=== PATIENT | male | born 1975 | race Caucasian/White ===

== ENCOUNTER 2017-10-27 05:43 | Emergency (ER) | payer BC, SELFPAY ==
[2017-10-27 06:16] LABS: Absolute Lymphocytes (CBC) 2.8 K/uL (0.7-4.9); Absolute Monocytes 0.9 K/uL (0.1-1.3); Absolute Neutrophil 6.8 K/uL (1.8-8.0); Basophils % 0.9 % (0-1.3); Eosinophils % 2.4 % (0-4.4); Hematocrit 44.7 % (39.6-49.0); Lymphocytes % 25.9 % (15.3-44.8); MCH 31.5 pg (27.0-35.0); MCV 92.4 fL (80-100); MPV 8.7 fL (7.6-11.3); Monocytes % 8.4 % (3.3-12.3); RBC Red Blood Cell Count 4.83 M/uL (4.33-5.43)
[2017-10-27 06:25] LABS: Bicarbonate 26 mEq/L (21-31); Glucose Level 300 mg/dL (65-120); Potassium 3.9 mEq/L (3.6-5.0); Sodium Level 134 mEq/L (135-145)
[2017-10-27 06:26] LABS: BUN Blood Urea Nitrogen 19 mg/dL (6-20); Glomerular Filtration Rate > 90 mL/min (=/>90)
[2017-10-27] MEDS ORDERED: IPRATROPIUM BROM 0.5MG/2.5ML ONE (06:27)
[2017-10-27] MEDS ORDERED: ALBUTEROL 2.5 MG/3 ML NEB SOL ONE ×2 (06:27→07:42)
[2017-10-27] MEDS ORDERED: predniSONE 20 MG TAB ONE (07:42)
--- NOTE | 2017-10-27 08:28 | EDPHYS ---
Physician Documentation [facility] Name: Juno Corcoran Jr Age: 42 yrs Sex: Male : 1975 Arrival Date: 10/27/2017 Time: 05:45 Bed 5 Private MD: ED Physician Brian Barrios HPI: 10/27 06:02 This 42 yrs old Male presents to ER via Ambulatory with complaints of kb Shortness Of Breath. 06:02 The patient has shortness of breath at rest. Onset: The symptoms/episode began/occurred kb this morning, at 02:00. Duration: The symptoms are continuous. The patient's shortness of breath is aggravated by supine position, is alleviated by sitting up. Associated signs and symptoms: Pertinent positives: non-productive cough, Pertinent negatives: chest pain, productive cough, diaphoresis, dizziness, fever, hemoptysis, loss of consciousness, nausea, numbness in extremities, visual changes, vomiting. Severity of symptoms: At their worst the symptoms were moderate in the emergency department the symptoms are unchanged. The patient has not experienced similar symptoms in the past. The patient has not recently seen a physician. Pt states he has felt run down with intermittent fever and shortness of breath for 3 weeks. Started having shortness of breath at 0200 today. Denies respiratory history, smokes a pack per day. Historical: - Allergies: 06:03 PENICILLINS; bb - Home Meds: 06:03 losartan oral oral [Active]; Metformin Oral [Active]; diclofenac oral oral [Active]; bb aspirin 81 mg Oral chew 1 tab once daily [Active]; Allergy Medication oral oral [Active]; B3 [Active]; - PMHx: 06:03 Diabetes - NIDDM; Hypertension; bb - PSHx: 06:04 Knee surgery; thumb; bb - Immunization history:: Adult Immunizations up to date, Flu vaccine is not up to date. - Social history:: Smoking status: Patient uses tobacco products, smokes one pack cigarettes per day. Patient/guardian denies using alcohol, street drugs. ROS: 06:01 ENT: Negative for injury, pain, and discharge, Neck: Negative for injury, pain, and kb swelling, Cardiovascular: Negative for chest pain, palpitations, and edema, Abdomen/GI: Negative for abdominal pain, nausea, vomiting, diarrhea, and constipation, Back: Negative for injury and pain, : Negative for injury, bleeding, discharge, and swelling, MS/Extremity: Negative for injury and deformity, Skin: Negative for injury, rash, and discoloration, Neuro: Negative for headache, weakness, numbness, tingling, and seizure. 06:01 Constitutional: Positive for fever, Negative for body aches, chills, fatigue, malaise, poor PO intake, weight loss. 06:01 Respiratory: Positive for cough, with no reported sputum, shortness of breath, Negative for dyspnea on exertion, hemoptysis, orthopnea, pleurisy, sputum production. Exam: 06:01 Constitutional: This is a well developed, well nourished patient who is awake, alert, kb and in no acute distress. Head/Face: Normocephalic, atraumatic. ENT: Nares patent. No nasal discharge, no septal abnormalities noted. Tympanic membranes are normal and external auditory canals are clear. Oropharynx with no redness, swelling, or masses, exudates, or evidence of obstruction, uvula midline. Mucous membranes moist. Neck: Trachea midline, no thyromegaly or masses palpated, and no cervical lymphadenopathy. Supple, full range of motion without nuchal rigidity, or vertebral point tenderness. No Meningismus. Chest/axilla: Normal chest wall appearance and motion. Nontender with no deformity. No lesions are appreciated. Cardiovascular: Regular rate and rhythm with a normal S1 and S2. No gallops, murmurs, or rubs. Normal PMI, no JVD. No pulse deficits. Abdomen/GI: Soft, non-tender, with normal bowel sounds. No distension or tympany. No guarding or rebound. No evidence of tenderness throughout. Skin: Warm, dry with normal turgor. Normal color with no rashes, no lesions, and no evidence of cellulitis. MS/ Extremity: Pulses equal, no cyanosis. Neurovascular intact. Full, normal range of motion. Neuro: Awake and alert, GCS 15, oriented to person, place, time, and situation. Cranial nerves II-XII grossly intact. Motor strength 5/5 in all extremities. Sensory grossly intact. Cerebellar exam normal. Normal gait. 06:01 Respiratory: the patient does not display signs of respiratory distress, Respirations: normal, Breath sounds: wheezing: expiratory that is mild, is heard in the bilateral lung bases. 07:02 Respiratory: the patient does not display signs of respiratory distress, Respirations: kb normal, Breath sounds: wheezing: expiratory that is mild, is heard in the bilateral lower lobes, has not changed. Vital Signs: 06:04 BP 131 / 78; Pulse 81; Resp 22 S; Temp 97.6(O); Pulse Ox 97% on R/A; Weight 122.47 kg bb (R); Height 6 ft. 2 in. (187.96 cm) (R); Pain 0/10; 07:15 BP 132 / 77; Pulse 81; Resp 19 S; Pulse Ox 98% on R/A; Pain 0/10; sg 06:04 Body Mass Index 34.67 (122.47 kg, 187.96 cm) bb MDM: 05:57 Patient medically screened. kb 06:00 Data reviewed: vital signs, nurses notes. Data interpreted: Pulse oximetry: on room air kb is 97 %. Interpretation: normal. 07:03 ED course: Pt resting comfortably on stretcher, watching something on his phone. No kb resp distress noted. States neb treatment didn't help the shortness of breath, but he feels like he is wheezing less. . 07:31 Counseling: I had a detailed discussion with the patient and/or guardian regarding: the kb historical points, exam findings, and any diagnostic results supporting the discharge/admit diagnosis, lab results, radiology results, the need for outpatient follow up, a family practitioner, to return to the emergency department if symptoms worsen or persist or if there are any questions or concerns that arise at home. 10/27 06:00 Order name: CBC with Diff 10/27 06:00 Order name: Basic Metabolic Panel 10/27 06:00 Order name: Chest Pa And Lat (2 Views) XRAY 10/27 06:24 Order name: CBC with Automated Diff; Complete Time: 06:25 EDMS 10/27 06:25 Order name: Basic Metabolic Panel; Complete Time: 06:29 EDMS 10/27 06:00 Order name: IV Start; Complete Time: 06:10 kb Administered Medications: 06:10 Drug: DuoNeb (3:1) (2.5 mg - 0.5 mg) 3 ml Route: Nebulizer; tl2 07:20 Follow up: Response: No adverse reaction sg 07:28 Drug: Albuterol 2.5 mg Route: Inhalation; sg 07:29 Drug: predniSONE 60 mg Route: PO; sg 07:49 Follow up: Response: No adverse reaction sg 07:29 Drug: Albuterol 2.5 mg Route: Inhalation; sg 07:51 Follow up: Response: No adverse reaction sg 07:29 Drug: Albuterol 2.5 mg Route: Inhalation; Disposition: 10/27/17 08:27 Discharged to Home. Impression: Bronchitis, not specified as acute or chronic. - Condition is Stable. - Discharge Instructions: Acute Bronchitis, [id number]. - Prescriptions for Prednisone 20 mg Oral Tablet - take 1 tablet by ORAL route once daily for 5 days; 5 tablet. Albuterol Sulfate 90 mcg/actuation - inhale 1-2 puff by INHALATION route every 4-6 hours; 1 Inhaler. - Medication Reconciliation Form, Thank You Letter, Antibiotic Education, Prescription Opioid Use, Work release form form. - Follow up: Emergency Department; When: As needed; Reason: Worsening of condition. Follow up: Private Physician; When: 2 - 3 days; Reason: Recheck today's complaints, Continuance of care, Re-evaluation by your physician. Signatures: Dispatcher [employer] Lynn Han, FUNERAL LOCATION MANAGER-C FUNERAL LOCATION MANAGER-Rex Powell RN Dawna Alicea RN RN Manuela Walker RN RN tl2
--- NOTE | 2017-10-27 08:28 | ER ---
Nurse's Notes [facility] Name: Juno Corcoran Jr Age: 42 yrs Sex: Male : 1975 Arrival Date: 10/27/2017 Time: 05:45 Bed 5 Private MD: Diagnosis: Bronchitis, not specified as acute or chronic Presentation: 10/27 05:59 Presenting complaint: Patient states: he is having shortness of breath since approx bb 0230 this morning but has been having cough and cold symptoms for several weeks. Transition of care: patient was not received from another setting of care. Onset of symptoms was October 27, 2017 at 02:30. Care prior to arrival: None. 05:59 Method Of Arrival: Ambulatory bb 05:59 Acuity: KEVIN 3 bb Triage Assessment: 06:12 Respiratory: Onset: The symptoms/episode began/occurred gradually, the patient has mild tl2 shortness of breath. Historical: - Allergies: 06:03 PENICILLINS; bb - Home Meds: 06:03 losartan oral oral [Active]; Metformin Oral [Active]; diclofenac oral oral [Active]; bb aspirin 81 mg Oral chew 1 tab once daily [Active]; Allergy Medication oral oral [Active]; B3 [Active]; - PMHx: 06:03 Diabetes - NIDDM; Hypertension; bb - PSHx: 06:04 Knee surgery; thumb; bb - Immunization history:: Adult Immunizations up to date, Flu vaccine is not up to date. - Social history:: Smoking status: Patient uses tobacco products, smokes one pack cigarettes per day. Patient/guardian denies using alcohol, street drugs. Screenin:12 Abuse screen: Denies threats or abuse. Nutritional screening: No deficits noted. tl2 Tuberculosis screening: No symptoms or risk factors identified. Fall Risk None identified. Assessment: 06:10 General: Appears in no apparent distress. comfortable, Behavior is calm, cooperative, tl2 appropriate for age. Pain: Denies pain. Neuro: Level of Consciousness is awake, alert, obeys commands, Oriented to person, place, time, situation. Cardiovascular: Denies chest pain. Respiratory: Reports shortness of breath cough that is Airway is patent Respiratory effort is even, unlabored, Respiratory pattern is regular, symmetrical, Breath sounds with wheezes bilaterally. GI: No signs and/or symptoms were reported involving the gastrointestinal system. : No signs and/or symptoms were reported regarding the genitourinary system. Derm: Skin is pink, warm \T\ dry. 06:30 Reassessment: Patient appears in no apparent distress at this time. Patient and/or tl2 family updated on plan of care and expected duration. Pain level reassessed. Patient is alert, oriented x 3, equal unlabored respirations, skin warm/dry/pink. Pt returned from Xray. 07:20 Reassessment: Patient appears in no apparent distress at this time. Patient and/or sg family updated on plan of care and expected duration. Pain level reassessed. Patient is alert, oriented x 3, equal unlabored respirations, skin warm/dry/pink. awaiting xray results at this time. Vital Signs: 06:04 BP 131 / 78; Pulse 81; Resp 22 S; Temp 97.6(O); Pulse Ox 97% on R/A; Weight 122.47 kg bb (R); Height 6 ft. 2 in. (187.96 cm) (R); Pain 0/10; 07:15 BP 132 / 77; Pulse 81; Resp 19 S; Pulse Ox 98% on R/A; Pain 0/10; sg 06:04 Body Mass Index 34.67 (122.47 kg, 187.96 cm) ED Course: 05:45 Patient arrived in ED. am2 05:57 Lynn Emanuel FNP-C [facility]. kb 05:57 Brian Barrios MD is Attending Physician. kb 06:00 Triage completed. bb 06:04 Arm band placed on Patient placed in an exam room, on a stretcher, on pulse oximetry. bb Family accompanied patient. 06:09 Inserted saline lock: 22 gauge in right wrist, using aseptic technique. Blood collected.tl2 06:10 Basic Metabolic Panel Sent. tl2 06:10 CBC with Diff Sent. tl2 06:12 Patient has correct armband on for positive identification. Bed in low position. Call tl2 light in reach. Side rails up X 1. Adult w/ patient. 06:40 Patient moved to radiology via wheelchair. jb2 06:55 X-ray completed. Patient tolerated procedure well. Patient moved back from radiology. jb2 07:21 Rex Garcia, RN is Primary Nurse. sg Administered Medications: 06:10 Drug: DuoNeb (3:1) (2.5 mg - 0.5 mg) 3 ml Route: Nebulizer; tl2 07:20 Follow up: Response: No adverse reaction sg 07:28 Drug: Albuterol 2.5 mg Route: Inhalation; sg 07:29 Drug: predniSONE 60 mg Route: PO; sg 07:49 Follow up: Response: No adverse reaction sg 07:29 Drug: Albuterol 2.5 mg Route: Inhalation; sg 07:51 Follow up: Response: No adverse reaction sg 07:29 Drug: Albuterol 2.5 mg Route: Inhalation; Outcome: 08:27 Discharge ordered by . kb 09:10 Patient left the ED. sg Signatures: Lynn Emanuel, PAINT GRINDER-C PAINT GRINDER-Rex Powell RN RN sg Donn Sosa jb2 Dawna Roman RN RN bb Manuela Donovan RN RN tl2 Desi Madrid am2 Corrections: (The following items were deleted from the chart) 06:12 06:10 Respiratory: Reports shortness of breath cough that is Airway is patent tl2 Respiratory effort is even, unlabored, Respiratory pattern is regular, symmetrical, tl2
--- NOTE | 2017-10-27 09:11 | RAD REPORT ---
EXAM DESCRIPTION: RAD - Chest Pa And Lat (2 Views) - 10/27/2017 6:56 am CLINICAL HISTORY: Cough, congestion, dyspnea COMPARISON: Chest imaging and CT chest imaging August 2014 TECHNIQUE: PA and lateral views of the chest were obtained. FINDINGS: The lungs are clear of an acute infiltrate, mass or failure finding. Innumerable small declan cified granulomas are scattered throughout both lung del angel. This is a stable pattern back to at leas t 2014. Heart size is normal and central vasculature is within normal limits. No pleural effusion or pneumothorax seen. No acute bone finding. There is minimal left convex curvature of the upper tho racic spine. No aortic abnormality. IMPRESSION: No acute cardiopulmonary process. The above detailed findings are not significantly different from remote imaging.
[2017-10-27 09:17] VITALS: TEMP 97.6
[2017-10-27 09:18] VITALS: BP 132/77; O2SAT 98
== END 2017-10-27 09:10 | disposition home or self-care (01) ==
LOC: ER 05:43
DX: J40 Bronchitis, not specified as acute or chronic (principal); I10 Essential (primary) hypertension; E11.9 Type 2 diabetes mellitus without complications; F17.210 Nicotine dependence, cigarettes, uncomplicated; Z79.82 Long term (current) use of aspirin; Z88.0 Allergy status to penicillin
CPT/HCPCS: 36415; 71046; 80048; 85025; 94640; 99284; J7512

== ENCOUNTER 2017-11-09 17:48 | Emergency (ER) | payer SELFPAY ==
--- NOTE | 2017-11-09 18:32 | EDPHYS ---
Physician Documentation [facility] Name: Juno Corcoran Jr Age: 42 yrs Sex: Male : 1975 Arrival Date: 11/09/2017 Time: 17:50 Bed 15 Private MD: Baron Mai HPI: 11/09 18:25 This 42 yrs old Male presents to ER via Ambulatory with complaints of Groin ondina Pain. 18:25 The patient presents with an abscess of the groin and left femoral area. Description: ondina The affected area is moderate sized, confluent, erythematous, swollen. Onset: The symptoms/episode began/occurred 3 day(s) ago. Possible cause(s): unknown. Associated signs and symptoms: The patient has no apparent associated signs or symptoms. Severity of symptoms: At their worst the symptoms were. Historical: - Allergies: 17:53 PENICILLINS; hj - Home Meds: 17:53 aspirin 81 mg Oral chew 1 tab once daily [Active]; metformin 500 mg oral tab 1 tab 2 hj times per day [Active]; B3 [Active]; diclofenac Oral once daily [Active]; Allergy Medication Oral [Active]; losartan Oral [Active]; - PMHx: 17:53 Diabetes - NIDDM; Hypertension; hj - PSHx: 17:53 Knee surgery; thumb; hj - Immunization history:: Adult Immunizations not up to date. - Social history:: Smoking status: Patient uses tobacco products, smokes one pack cigarettes per day. - Family history:: not pertinent. ROS: 18:25 Constitutional: Negative for fever, chills, and weight loss, Eyes: Negative for injury, ondina pain, redness, and discharge, ENT: Negative for injury, pain, and discharge, Neck: Negative for injury, pain, and swelling, Cardiovascular: Negative for chest pain, palpitations, and edema, Respiratory: Negative for shortness of breath, cough, wheezing, and pleuritic chest pain, Abdomen/GI: Negative for abdominal pain, nausea, vomiting, diarrhea, and constipation, Back: Negative for injury and pain, : Negative for injury, bleeding, discharge, and swelling, Skin: Negative for injury, rash, and discoloration, Neuro: Negative for headache, weakness, numbness, tingling, and seizure, Psych: Negative for depression, anxiety, suicide ideation, homicidal ideation, and hallucinations, Allergy/Immunology: Negative for hives, rash, and allergies, Endocrine: Negative for neck swelling, polydipsia, polyuria, polyphagia, and marked weight changes. 18:25 MS/extremity: Positive for decreased range of motion, pain, swelling, tenderness, of the groin and left femoral area. Exam: 18:25 Constitutional: This is a well developed, well nourished patient who is awake, alert, ondina and in no acute distress. Head/Face: Normocephalic, atraumatic. Eyes: Pupils equal round and reactive to light, extra-ocular motions intact. Lids and lashes normal. Conjunctiva and sclera are non-icteric and not injected. Cornea within normal limits. Periorbital areas with no swelling, redness, or edema. ENT: Nares patent. No nasal discharge, no septal abnormalities noted. Tympanic membranes are normal and external auditory canals are clear. Oropharynx with no redness, swelling, or masses, exudates, or evidence of obstruction, uvula midline. Mucous membranes moist. Neck: Trachea midline, no thyromegaly or masses palpated, and no cervical lymphadenopathy. Supple, full range of motion without nuchal rigidity, or vertebral point tenderness. No Meningismus. Chest/axilla: Normal chest wall appearance and motion. Nontender with no deformity. No lesions are appreciated. Cardiovascular: Regular rate and rhythm with a normal S1 and S2. No gallops, murmurs, or rubs. Normal PMI, no JVD. No pulse deficits. Respiratory: Lungs have equal breath sounds bilaterally, clear to auscultation and percussion. No rales, rhonchi or wheezes noted. No increased work of breathing, no retractions or nasal flaring. Abdomen/GI: Soft, non-tender, with normal bowel sounds. No distension or tympany. No guarding or rebound. No evidence of tenderness throughout. Back: No spinal tenderness. No costovertebral tenderness. Full range of motion. Skin: Warm, dry with normal turgor. Normal color with no rashes, no lesions, and no evidence of cellulitis. MS/ Extremity: Pulses equal, no cyanosis. Neurovascular intact. Full, normal range of motion. Neuro: Awake and alert, GCS 15, oriented to person, place, time, and situation. Cranial nerves II-XII grossly intact. Motor strength 5/5 in all extremities. Sensory grossly intact. Cerebellar exam normal. Normal gait. Psych: Awake, alert, with orientation to person, place and time. Behavior, mood, and affect are within normal limits. 18:25 : Exam negative for 18:25 Skin: abscess, that is small, cellulitis, that is minimal, induration, that is moderate is noted. Vital Signs: 17:53 BP 131 / 92; Pulse 87; Resp 18; Temp 99.5(O); Pulse Ox 98% on R/A; Weight 122.47 kg; hj Height 6 ft. 5 in. (195.58 cm); Pain 10/10; 18:11 BP 130 / 88; Pulse 73; Resp 18; Pulse Ox 97% on R/A; wh 17:53 Body Mass Index 32.02 (122.47 kg, 195.58 cm) Procedures: 19:22 I \T\ D: Incision and drainage was performed for an abscess of the left Prepped with [facility] Betadine, Anesthetized with 10 ml's 1% Lidocaine w/ Epi. Incised with #11 blade. Drained moderate amount serosanguinous fluid. Packed with iodoform gauze, Dressing: sterile 4x4 gauze, the patient tolerated the procedure well. MDM: 18:21 Patient medically screened. [facility] 18:25 Data reviewed: vital signs, nurses notes, lab test result(s). [facility] 11/09 18:24 Order name: Urine Dipstick--Ancillary (enter results) 11/09 18:24 Order name: Urine Dipstick-Ancillary EDMS 11/09 18:25 Order name: Wound Culture [facility] 11/09 18:25 Order name: Dressing - Wound; Complete Time: 18:48 [facility] 11/09 18:25 Order name: Gloves, Sterile; Complete Time: 18:48 [facility] 11/09 18:25 Order name: Setup Suture Tray; Complete Time: 18:48 [facility] 11/09 18:31 Order name: Blood Glucose Level; Complete Time: 18:49 [facility] Administered Medications: 18:47 Drug: Zofran 4 mg Route: PO; 19:19 Follow up: Response: No adverse reaction 18:48 Drug: Bactrim (160 mg-800 mg (DS) 1 tablet Route: PO; 19:19 Follow up: Response: No adverse reaction 18:49 Drug: Doxycycline 200 mg Route: PO; 19:18 Follow up: Response: No adverse reaction 19:18 Drug: Lidocaine-Epinephrine -1%: (1:100,000) 10 ml {Note: Left Groin Area.} Volume: 20 wh ml; Route: Infiltration; 19:19 Follow up: Response: No adverse reaction Point of Care Testing: Blood Glucose: 19:21 Blood Glucose: 208 mg/dL; Ranges: Critical Glucose Levels:Adult <50 mg/dl or >400 mg/dl <40 mg/dl or >180 mg/dl Disposition: 11/09/17 18:31 Discharged to Home. Impression: Cutaneous abscess of other sites - left groin, Type 2 diabetes mellitus. - Condition is Stable. - Discharge Instructions: Abscess, Type 2 Diabetes Mellitus, Adult, Incision and Drainage, Abscess, [id number], Diabetes Mellitus and Food, Type 2 Diabetes Mellitus, Adult, [id number]. - Prescriptions for Tylenol- Codeine #3 300-30 mg Oral Tablet - take 2 tablets by ORAL route every 6 hours As needed; 24 tablet. Doxycycline Hyclate 100 mg Oral Tablet - take 1 tablet by ORAL route every 12 hours; 20 tablet. Bactrim DS 800- 160 mg Oral Tablet - take 1 tablet by ORAL route every 12 hours for 10 days; 20 tablet. - Medication Reconciliation Form, Thank You Letter, Antibiotic Education, Prescription Opioid Use form. - Follow up: Private Physician; When: 2 - 3 days; Reason: Recheck today's complaints, Continuance of care, Re-evaluation by your physician. Follow up: Meng Romero; When: 2 - 3 days; Reason: Recheck today's complaints, Re-evaluation by your physician. - Problem is new. - Symptoms have improved. Signatures: Dispatcher [employer] Baron Suarez MD MD cha Joaquin, Henry, Josiah Fink RN
--- NOTE | 2017-11-09 18:32 | ER ---
Nurse's Notes [facility] Name: Juno Corcoran Jr Age: 42 yrs Sex: Male : 1975 Arrival Date: 11/09/2017 Time: 17:50 Bed 15 Private MD: Diagnosis: Cutaneous abscess of other sites-left groin;Type 2 diabetes mellitus Presentation: 11/09 17:51 Presenting complaint: Patient states: i noticed a knot on my L groin and been draining hj it; reports nausea, denies fever and chills;. Transition of care: patient was not received from another setting of care. Onset of symptoms was November 09, 2017. Care prior to arrival: None. 17:51 Method Of Arrival: Ambulatory hj 17:51 Acuity: KEVIN 4 hj Triage Assessment: 17:53 General: Appears in no apparent distress. uncomfortable, Behavior is calm, cooperative, hj appropriate for age. Pain: Complains of pain in pelvis. Historical: - Allergies: 17:53 PENICILLINS; hj - Home Meds: 17:53 aspirin 81 mg Oral chew 1 tab once daily [Active]; metformin 500 mg oral tab 1 tab 2 hj times per day [Active]; B3 [Active]; diclofenac Oral once daily [Active]; Allergy Medication Oral [Active]; losartan Oral [Active]; - PMHx: 17:53 Diabetes - NIDDM; Hypertension; hj - PSHx: 17:53 Knee surgery; thumb; hj - Immunization history:: Adult Immunizations not up to date. - Social history:: Smoking status: Patient uses tobacco products, smokes one pack cigarettes per day. - Family history:: not pertinent. Screenin:10 Abuse screen: Denies threats or abuse. Denies injuries from another. Nutritional wh screening: No deficits noted. Tuberculosis screening: No symptoms or risk factors identified. Fall Risk None identified. Assessment: 18:08 General: Appears in no apparent distress. comfortable, Behavior is calm, cooperative, wh appropriate for age. Pain: Complains of pain in left groin area Pain does not radiate. Pain currently is 10 out of 10 on a pain scale. Pain began 1 day ago. Neuro: Level of Consciousness is awake, alert, obeys commands, Oriented to person, place, time, situation. Cardiovascular: Denies chest pain, Capillary refill < 3 seconds. Respiratory: Airway is patent Respiratory effort is even, unlabored, Respiratory pattern is regular, symmetrical. GI: Abdomen is flat, non-distended. : No signs and/or symptoms were reported regarding the genitourinary system. EENT: No signs and/or symptoms were reported regarding the EENT system. Derm: Skin is intact, is healthy with good turgor, Skin is pink, warm \T\ dry. normal, reddened area around groin. Musculoskeletal: Range of motion: intact in all extremities. 19:20 Reassessment: Patient appears in no apparent distress at this time. Patient and/or wh family updated on plan of care and expected duration. Pain level reassessed. Patient is alert, oriented x 3, equal unlabored respirations, skin warm/dry/pink. Vital Signs: 17:53 BP 131 / 92; Pulse 87; Resp 18; Temp 99.5(O); Pulse Ox 98% on R/A; Weight 122.47 kg; Height 6 ft. 5 in. (195.58 cm); Pain 10/10; 18:11 BP 130 / 88; Pulse 73; Resp 18; Pulse Ox 97% on R/A; wh 17:53 Body Mass Index 32.02 (122.47 kg, 195.58 cm) ED Course: 17:50 Patient arrived in ED. rg4 17:52 Triage completed. 17:53 Arm band placed on right wrist. 18:07 Josiah Meehan is Primary Nurse. 18:11 Patient has correct armband on for positive identification. Bed in low position. Call light in reach. Side rails up X 1. Pulse ox on. NIBP on. 18:20 Barno Barahona MD is Attending Physician. [facility] 18:31 Meng Romero MD is Referral Physician. [facility] 19:20 Assist provider with I \T\ D: of an abscess on left groin area Set up I\T\D tray. Performed wh by Baron Barahona MD Culture sent to lab. Wound packed. iodoform gauze, Dressing with Neosporin and Patient tolerated well. Patient did not have IV access during this emergency room visit. Administered Medications: 18:47 Drug: Zofran 4 mg Route: PO; 19:19 Follow up: Response: No adverse reaction 18:48 Drug: Bactrim (160 mg-800 mg (DS) 1 tablet Route: PO; 19:19 Follow up: Response: No adverse reaction 18:49 Drug: Doxycycline 200 mg Route: PO; 19:18 Follow up: Response: No adverse reaction 19:18 Drug: Lidocaine-Epinephrine -1%: (1:100,000) 10 ml {Note: Left Groin Area.} Volume: 20 wh ml; Route: Infiltration; 19:19 Follow up: Response: No adverse reaction Point of Care Testing: Blood Glucose: 19:21 Blood Glucose: 208 mg/dL; Ranges: Outcome: 18:31 Discharge ordered by MD. nj 19:27 Discharged to home 19:27 Discharged to home ambulatory. 19:27 Condition: good 19:27 Discharge instructions given to patient, family, Instructed on discharge instructions, follow up and referral plans. no drinking with medication, no driving heavy equipment, medication usage, wound care, POC Abscess Demonstrated understanding of instructions, follow-up care, wound care, POC Prescriptions given X 3. 19:29 Patient left the ED. Addendum: 11/14/2017 18:58 Addendum: Culture Results: Positive wound culture. Bacteria is resistant to, has i w intermediate sensitivity, or is not tested against prescribed antibiotics. Report given to FLORINA for further evaluation and then to outbound telemarketing representative for follow up with patient. Phone call Attempt #1 pt did not answer, unable to leave voicemail. Signatures: Baron Barahona MD MD cha Williams, Irene, RN NORRIS Jonathan Boles RN RN hj Garcia, Rubi 4 Josiah Meehan Corrections: (The following items were deleted from the chart) 11/09 17:56 17:53 Pulse 87bpm; Resp 18bpm; Pulse Ox 98% RA; Temp 99.5F Oral; 122.47 kg; Height 6 hj ft. 5 in.; BMI: 32.0; Pain 10/10; hj
[2017-11-09] MEDS ORDERED: ONDANSETRON 4 MG (ODT) TAB ONE (19:02)
[2017-11-09] MEDS ORDERED: SMZ./TMP. 800/160 MG TABLET ONE (19:02)
[2017-11-09] MEDS ORDERED: DOXYCYCLINE 100 MG CAP PO ONE (19:03)
[2017-11-09] MEDS ORDERED: LIDOCAINE 1% W/EPI 1:100,000 MDV 50 ML VIAL ONE (19:03)
[2017-11-09 19:33] VITALS: TEMP 99.5
[2017-11-09 19:34] VITALS: BP 130/88; O2SAT 97
[2017-11-09 19:36] LABS: Urine Blood NEGATIVE (NEG); Urine Glucose 2+ (NEG); Urine Protein NEGATIVE (NEG)
== END 2017-11-09 19:29 | disposition home or self-care (01) ==
LOC: ER 17:48
PROC: 0J9C0ZZ Drainage of Pelvic Region Subcutaneous Tissue and Fascia, Open Approach (ICD-10-PCS; principal; 2017-11-09)
DX: L02.214 Cutaneous abscess of groin (principal); E11.9 Type 2 diabetes mellitus without complications; I10 Essential (primary) hypertension; F17.210 Nicotine dependence, cigarettes, uncomplicated; Z79.82 Long term (current) use of aspirin; Z88.0 Allergy status to penicillin
CPT/HCPCS: 81003; 82962; 87070; 87077; 87186; 87205; 99284

== ENCOUNTER 2017-11-10 09:30 | Emergency (ER) | payer SELFPAY ==
[2017-11-10] MEDS ORDERED: FENTANYL CITR 100 MCG/2 ML ONE (10:32)
[2017-11-10] MEDS ORDERED: NA CHLORIDE 0.9% 1,000 ML ONE (10:33)
[2017-11-10] MEDS ORDERED: ONDANSETRON 4 MG/2 ML VIAL ONE ×2 (10:33→11:44)
[2017-11-10] MEDS ORDERED: VANCOMYCIN/NS 1 gm 1 GM/250 ML BAG ONE (10:33)
[2017-11-10 10:51] LABS: Bicarbonate 25 mEq/L (21-31); Glucose Level 230 mg/dL (65-120); Potassium 3.9 mEq/L (3.6-5.0); Sodium Level 130 mEq/L (135-145)
[2017-11-10 10:55] LABS: ALT/SGPT 39 IU/L (10-60); AST/SGOT 20 IU/L (10-42); Albumin 4.4 g/dL (3.2-5.5); Alkaline Phosphatase 65 IU/L (42-121); BUN Blood Urea Nitrogen 13 mg/dL (6-20); Bilirubin Total 0.7 mg/dL (0.3-1.2); Protein, Total 7.5 g/dL (6.0-8.3)
[2017-11-10 10:56] LABS: Absolute Lymphocytes (CBC) 1.6 K/uL (0.7-4.9); Absolute Monocytes 1.1 K/uL (0.1-1.3); Basophils % 0.3 % (0-1.3); Eosinophils % 0.6 % (0-4.4); Hematocrit 48.3 % (39.6-49.0); Lymphocytes % 11.4 % (15.3-44.8); MCH 31.2 pg (27.0-35.0); MCV 92.5 fL (80-100); MPV 8.6 fL (7.6-11.3); Monocytes % 7.8 % (3.3-12.3); RBC Red Blood Cell Count 5.22 M/uL (4.33-5.43)
--- NOTE | 2017-11-10 11:06 | EDPHYS ---
Physician Documentation [facility] Name: Juno Corcoran Jr Age: 42 yrs Sex: Male : 1975 Arrival Date: 11/10/2017 Time: 09:33 Bed 19 Private MD: ED Physician Baron Barahona HPI: 11/10 10:08 This 42 yrs old Male presents to ER via Ambulatory with complaints of Groin ondina Pain, Abscess. 10:08 The patient presents with an abscess of the left upper thigh, The patient presents with ondina cellulitis of the left inner thigh. Description: The affected area is moderate sized, confluent, draining, erythematous. Onset: The symptoms/episode began/occurred 3 day(s) ago. Possible cause(s): unknown. Associated signs and symptoms: The patient has no apparent associated signs or symptoms. Severity of symptoms: At their worst the symptoms were mild, in the emergency department the symptoms are unchanged. The patient has experienced similar episodes in the past, a few times. Historical: - Allergies: 09:47 PENICILLINS; la1 - PMHx: 09:47 Diabetes - NIDDM; Hypertension; la1 - Immunization history:: Adult Immunizations up to date. - Social history:: Smoking status: Patient uses tobacco products, smokes one pack cigarettes per day. - Family history:: not pertinent. ROS: 10:08 Constitutional: Negative for fever, chills, and weight loss, Eyes: Negative for injury, ondina pain, redness, and discharge, ENT: Negative for injury, pain, and discharge, Neck: Negative for injury, pain, and swelling, Cardiovascular: Negative for chest pain, palpitations, and edema, Respiratory: Negative for shortness of breath, cough, wheezing, and pleuritic chest pain, Back: Negative for injury and pain, : Negative for injury, bleeding, discharge, and swelling, MS/Extremity: Negative for injury and deformity, Neuro: Negative for headache, weakness, numbness, tingling, and seizure, Psych: Negative for depression, anxiety, suicide ideation, homicidal ideation, and hallucinations, Allergy/Immunology: Negative for hives, rash, and allergies, Endocrine: Negative for neck swelling, polydipsia, polyuria, polyphagia, and marked weight changes, Hematologic/Lymphatic: Negative for swollen nodes, abnormal bleeding, and unusual bruising. 10:08 Abdomen/GI: Positive for nausea, vomiting. 10:08 MS/extremity: Positive for pain, swelling, tenderness, of the left inner thigh. Exam: 10:08 Constitutional: This is a well developed, well nourished patient who is awake, alert, ondina and in no acute distress. Head/Face: Normocephalic, atraumatic. Eyes: Pupils equal round and reactive to light, extra-ocular motions intact. Lids and lashes normal. Conjunctiva and sclera are non-icteric and not injected. Cornea within normal limits. Periorbital areas with no swelling, redness, or edema. ENT: Nares patent. No nasal discharge, no septal abnormalities noted. Tympanic membranes are normal and external auditory canals are clear. Oropharynx with no redness, swelling, or masses, exudates, or evidence of obstruction, uvula midline. Mucous membranes moist. Neck: Trachea midline, no thyromegaly or masses palpated, and no cervical lymphadenopathy. Supple, full range of motion without nuchal rigidity, or vertebral point tenderness. No Meningismus. Chest/axilla: Normal chest wall appearance and motion. Nontender with no deformity. No lesions are appreciated. Cardiovascular: Regular rate and rhythm with a normal S1 and S2. No gallops, murmurs, or rubs. Normal PMI, no JVD. No pulse deficits. Respiratory: Lungs have equal breath sounds bilaterally, clear to auscultation and percussion. No rales, rhonchi or wheezes noted. No increased work of breathing, no retractions or nasal flaring. Abdomen/GI: Soft, non-tender, with normal bowel sounds. No distension or tympany. No guarding or rebound. No evidence of tenderness throughout. Back: No spinal tenderness. No costovertebral tenderness. Full range of motion. Male : Normal genitalia with no discharge or lesions. MS/ Extremity: Pulses equal, no cyanosis. Neurovascular intact. Full, normal range of motion. Neuro: Awake and alert, GCS 15, oriented to person, place, time, and situation. Cranial nerves II-XII grossly intact. Motor strength 5/5 in all extremities. Sensory grossly intact. Cerebellar exam normal. Normal gait. Psych: Awake, alert, with orientation to person, place and time. Behavior, mood, and affect are within normal limits. 10:08 Skin: abscess, that is small, of the left inner thigh, cellulitis, induration, that is mild is noted. Vital Signs: 09:47 BP 138 / 89; Pulse 98; Resp 16; Temp 97.5(O); Pulse Ox 100% on R/A; Weight 122.47 kg; la1 Height 6 ft. 5 in. (195.58 cm); Pain 10/10; 10:45 BP 124 / 84; Pulse 74; Resp 16; Pulse Ox 97% on R/A; Pain 4/10; em 11:43 BP 118 / 73; Pulse 84; Resp 18; Pulse Ox 95% on R/A; Pain 0/10; em 12:36 BP 115 / 72; Pulse 77; Resp 14; Pulse Ox 99% on R/A; em 13:33 BP 115 / 76; Pulse 74; Resp 18; Temp 97.8; Pulse Ox 99% on R/A; Pain 2/10; em 09:47 Body Mass Index 32.02 (122.47 kg, 195.58 cm) la1 MDM: 10:02 Patient medically screened. [facility] 10:10 Data reviewed: vital signs, nurses notes, lab test result(s). [facility] 11/10 10:07 Order name: CBC with Diff; Complete Time: 11:04 [facility] 11/10 10:07 Order name: Comprehensive Metabolic Panel; Complete Time: 11:04 [facility] 11/10 10:07 Order name: Urine Dipstick-Ancillary (obtain specimen); Complete Time: 10:44 [facility] Administered Medications: 10:30 Drug: Zofran 4 mg Route: IVP; Site: right antecubital; ss 11:06 Follow up: Response: No adverse reaction em 10:30 Drug: fentaNYL (PF) 50 mcg Route: IVP; Site: right antecubital; ss 11:06 Follow up: Response: No adverse reaction em 10:31 Drug: NS 0.9% 1000 ml Route: IV; Rate: 1 bolus; Site: right antecubital; em 11:38 Follow up: IV Status: Completed infusion; IV Intake: 1000ml em 10:31 Drug: vancoMYCIN 1 grams Route: IVPB; Infused Over: 2 hrs; Site: right antecubital; em 13:33 Follow up: IV Status: Completed infusion; IV Intake: 250ml em 11:30 Drug: Zofran 4 mg Route: IVP; Site: right antecubital; em 12:37 Follow up: Response: No adverse reaction; Nausea is decreased em 11:37 Drug: Doxycycline 200 mg Route: PO; em 12:37 Follow up: Response: No adverse reaction em 11:38 Drug: Bactrim (160 mg-800 mg (DS) 1 tablet Route: PO; em 12:37 Follow up: Response: No adverse reaction em Disposition: 11/10/17 11:05 Discharged to Home. Impression: Cutaneous abscess of groin, Type 2 diabetes mellitus, Vomiting. - Condition is Stable. - Discharge Instructions: Abscess, Type 2 Diabetes Mellitus, Adult, Incision and Drainage, Nausea and Vomiting, Abscess, [id number], Nausea and Vomiting, [id number], Type 2 Diabetes Mellitus, Adult, [id number]. - Prescriptions for Zofran 4 mg Oral Tablet - take 1 tablet by ORAL route every 12 hours As needed; 20 tablet. - Medication Reconciliation Form, Thank You Letter, Antibiotic Education, Prescription Opioid Use form. - Follow up: Private Physician; When: 2 - 3 days; Reason: Recheck today's complaints, Continuance of care, Re-evaluation by your physician. - Problem is new. - Symptoms have improved. Signatures: Dispatcher [employer] Baron Suarez MD MD cha Munoz, Edgar, WEIGHT CONTROL LECTURER WEIGHT CONTROL LECTURER Hayde Whitten, NORRIS PISANO ss Henry Almodovar RN RN la1
--- NOTE | 2017-11-10 11:06 | ER ---
Nurse's Notes [facility] Name: Juno Corcoran Jr Age: 42 yrs Sex: Male : 1975 Arrival Date: 11/10/2017 Time: 09:33 Bed 19 Private MD: Diagnosis: Cutaneous abscess of groin;Type 2 diabetes mellitus;Vomiting Presentation: 11/10 09:45 Presenting complaint: Patient states: I had an I \T\ D done last night, worse pain today, la1 Nausea and vomiting, pt denies diarrhea. Pt with subjective fever at home. Transition of care: patient was not received from another setting of care. Onset of symptoms was November 10, 2017. Care prior to arrival: None. 09:45 Method Of Arrival: Ambulatory la1 09:45 Acuity: KEVIN 3 la1 Historical: - Allergies: :47 PENICILLINS; la1 - PMHx: 09:47 Diabetes - NIDDM; Hypertension; la1 - Immunization history:: Adult Immunizations up to date. - Social history:: Smoking status: Patient uses tobacco products, smokes one pack cigarettes per day. - Family history:: not pertinent. Screenin:52 Abuse screen: Denies threats or abuse. Nutritional screening: No deficits noted. em Tuberculosis screening: No symptoms or risk factors identified. Fall Risk None identified. Assessment: 10:00 General: Appears in no apparent distress. uncomfortable, Behavior is calm, cooperative. em General: Denies fever, was here yesterday and had abscess drained, c/o nausea and vomiting, unable to keep pain or antibiotics down. Pain: Complains of pain in left femoral area Pain does not radiate. Pain currently is 10 out of 10 on a pain scale. Neuro: Level of Consciousness is awake, alert, obeys commands, Oriented to person, place, time, situation. Cardiovascular: Capillary refill < 3 seconds Patient's skin is warm and dry. Respiratory: Airway is patent Respiratory effort is even, unlabored, Respiratory pattern is regular, symmetrical. GI: Abdomen is Reports intolerance of fluids, intolerance of food, nausea, vomiting. : No signs and/or symptoms were reported regarding the genitourinary system. EENT: No signs and/or symptoms were reported regarding the EENT system. Derm: Skin is intact, Skin is pink, warm \T\ dry. packing in abscess, redness around abscess noted. Musculoskeletal: Range of motion: intact in all extremities. 10:12 General: The previous assessment is accurate, call light reach within reach. ss 11:00 Reassessment: Patient appears in no apparent distress at this time. Patient and/or em family updated on plan of care and expected duration. Pain level reassessed. Patient is alert, oriented x 3, equal unlabored respirations, skin warm/dry/pink. c/o nausea, Dr. Barahona notified, new orders received, awaiting IV abx to finish before discharging pt. 12:00 Reassessment: Patient appears in no apparent distress at this time. Patient and/or em family updated on plan of care and expected duration. Pain level reassessed. Patient is alert, oriented x 3, equal unlabored respirations, skin warm/dry/pink. Patient states feeling better. 13:02 Reassessment: Patient appears in no apparent distress at this time. Patient and/or em family updated on plan of care and expected duration. Pain level reassessed. Patient is alert, oriented x 3, equal unlabored respirations, skin warm/dry/pink. Patient states feeling better. Patient states symptoms have improved. Vital Signs: 09:47 BP 138 / 89; Pulse 98; Resp 16; Temp 97.5(O); Pulse Ox 100% on R/A; Weight 122.47 kg; la1 Height 6 ft. 5 in. (195.58 cm); Pain 10/10; 10:45 BP 124 / 84; Pulse 74; Resp 16; Pulse Ox 97% on R/A; Pain 4/10; em 11:43 BP 118 / 73; Pulse 84; Resp 18; Pulse Ox 95% on R/A; Pain 0/10; em 12:36 BP 115 / 72; Pulse 77; Resp 14; Pulse Ox 99% on R/A; em 13:33 BP 115 / 76; Pulse 74; Resp 18; Temp 97.8; Pulse Ox 99% on R/A; Pain 2/10; em 09:47 Body Mass Index 32.02 (122.47 kg, 195.58 cm) la1 ED Course: 09:33 Patient arrived in ED. sb2 09:46 Triage completed. la1 09:47 Arm band placed on right wrist. la1 10:02 Baron Barahona MD is Attending Physician. ondina 10:09 Lloyd Bustillos LVN is Primary Nurse. em 10:30 No provider procedures requiring assistance completed. Inserted saline lock: 20 gauge em in right antecubital area, using aseptic technique. Blood collected. 10:30 Initial lab(s) drawn, by me, sent to lab. em 10:52 Patient has correct armband on for positive identification. Bed in low position. Call em light in reach. Side rails up X2. Warm blanket given. Pillow given. 13:37 IV discontinued, intact, bleeding controlled, No redness/swelling at site. Pressure em dressing applied. Administered Medications: 10:30 Drug: Zofran 4 mg Route: IVP; Site: right antecubital; ss 11:06 Follow up: Response: No adverse reaction em 10:30 Drug: fentaNYL (PF) 50 mcg Route: IVP; Site: right antecubital; ss 11:06 Follow up: Response: No adverse reaction em 10:31 Drug: NS 0.9% 1000 ml Route: IV; Rate: 1 bolus; Site: right antecubital; em 11:38 Follow up: IV Status: Completed infusion; IV Intake: 1000ml em 10:31 Drug: vancoMYCIN 1 grams Route: IVPB; Infused Over: 2 hrs; Site: right antecubital; em 13:33 Follow up: IV Status: Completed infusion; IV Intake: 250ml em 11:30 Drug: Zofran 4 mg Route: IVP; Site: right antecubital; em 12:37 Follow up: Response: No adverse reaction; Nausea is decreased em 11:37 Drug: Doxycycline 200 mg Route: PO; em 12:37 Follow up: Response: No adverse reaction em 11:38 Drug: Bactrim (160 mg-800 mg (DS) 1 tablet Route: PO; em 12:37 Follow up: Response: No adverse reaction em Intake: 11:38 IV: 1000ml; Total: 1000ml. em 13:33 IV: 250ml; Total: 1250ml. em Outcome: 11:05 Discharge ordered by . [facility] 13:36 Discharged to home ambulatory. em 13:36 Condition: good 13:36 Discharge instructions given to patient, Instructed on discharge instructions, follow up and referral plans. medication usage, Demonstrated understanding of instructions, follow-up care, medications, Prescriptions given X 1. 13:37 Patient left the ED. em Signatures: Baron Barahona MD MD cha Munoz, Edgar, CONSULTING TECHNICAL MANAGER CONSULTING TECHNICAL MANAGER em Hayde Baldwin, RN RN ss Henry Almodovar RN RN la1 Shayy Shannon 2
[2017-11-10] MEDS ORDERED: DOXYCYCLINE 100 MG CAP PO ONE (11:36)
[2017-11-10] MEDS ORDERED: SMZ./TMP. 800/160 MG TABLET ONE (11:36)
[2017-11-10 13:47] VITALS: O2SAT 99
[2017-11-10 13:49] VITALS: BP 115/76; TEMP 97.8
== END 2017-11-10 13:37 | disposition home or self-care (01) ==
LOC: ER 09:30
DX: L02.214 Cutaneous abscess of groin (principal); E11.9 Type 2 diabetes mellitus without complications; R11.10 Vomiting, unspecified; I10 Essential (primary) hypertension; F17.210 Nicotine dependence, cigarettes, uncomplicated; Z88.0 Allergy status to penicillin
CPT/HCPCS: 36415; 80053; 85025; 96365; 96366; 96375; 99284; J2405; J3010; J3370; J7030

== ENCOUNTER 2018-05-14 12:59 | Emergency (ER) | payer BC, SELFPAY ==
[2018-05-14] MEDS ORDERED: NA CHLORIDE 0.9% 1,000 ML ONE (13:45)
[2018-05-14 13:47] LABS: Absolute Lymphocytes (CBC) 2.7 K/uL (0.7-4.9); Absolute Monocytes 0.8 K/uL (0.1-1.3); Eosinophils % 1.5 % (0-4.4); Hematocrit 44.8 % (39.6-49.0); Lymphocytes % 21.4 % (15.3-44.8); MCH 32.3 pg (27.0-35.0); MCV 91.8 fL (80-100); MPV 9.4 fL (7.6-11.3); Monocytes % 6.2 % (3.3-12.3); RBC Red Blood Cell Count 4.88 M/uL (4.33-5.43)
--- NOTE | 2018-05-14 14:02 | RAD REPORT ---
EXAM DESCRIPTION: RAD - Chest Single View - 05/14/2018 1:41 pm CLINICAL HISTORY: Cough, elevated blood sugar, hypertension COMPARISON: October 2017 TECHNIQUE: AP portable chest image was obtained 1334 hours . FINDINGS: Lungs are clear of acute infiltrate, mass or failure finding. Patient has innumerable smal l calcified granulomas throughout the lung [place] angel. This is been shown to be a stable pattern over man y years. Heart and vasculature are normal. No measurable pleural effusion and no pneumothorax. No johan ss bony abnormality seen. No acute aortic findings suspected. IMPRESSION: No acute cardiopulmonary process. Chest is not significantly different from comparison.
[2018-05-14 14:07] LABS: ALT/SGPT 60 U/L (12-78); AST/SGOT 26 U/L (15-37); Alkaline Phosphatase 72 U/L (45-117); BUN Blood Urea Nitrogen 16 mg/dL (7-18); Bicarbonate 26 mmol/L (21-32); Bilirubin Direct < 0.1 mg/dL (0-0.2); Bilirubin Total 0.3 mg/dL (0.2-1.0); Glucose Level 224 mg/dL (74-106); Lipase 263 U/L (73-393); Magnesium 1.9 mg/dL (1.8-2.4); NT PRO-BNP 49 pg/mL (<125); Protein, Total 7.5 g/dL (6.4-8.2); Sodium Level 134 mmol/L (136-145); Troponin (Emerg Dept Use Only) < 0.02 ng/mL (0.0-0.045)
[2018-05-14 14:49] LABS: Protime INR 1.05
--- NOTE | 2018-05-14 15:31 | EDPHYS ---
Physician Documentation [facility] Name: Juno Corcoran Jr Age: 43 yrs Sex: Male : 1975 Arrival Date: 05/14/2018 Time: 13:03 Bed 25 Private MD: ED Physician Baron Barahona HPI: 05/14 15:26 This 43 yrs old Male presents to ER via EMS with complaints of weakness, ondina diabetic. 15:26 This 43 yrs old Male presents to ER via EMS with complaints of weakness, ondina diabetic. 15:26 no pain, non focal. Onset: The symptoms/episode began/occurred just prior to arrival. ondina Severity of symptoms: At their worst the symptoms were mild in the emergency department the symptoms are unchanged. The patient has experienced similar episodes in the past, a few times. Historical: - Allergies: 13: PENICILLINS; tl3 - Home Meds: 13: metformin 500 mg Oral tab 1 tab 2 times per day [Active]; losartan 100 mg oral tab tl3 [Active]; aspirin 81 mg Oral chew 1 tab once daily [Active]; diclofenac Oral once daily [Active]; atorvastatin 20 mg oral tab 1 tab once daily [Active]; Claritin 10 mg Oral tab 1 tab twice a day [Active]; zolpidem 10 mg Oral tab 1 tab as needed [Active]; Adipex-P 37.5 mg oral cap 1 cap once daily [Active]; - PMHx: 13:31 Diabetes - NIDDM; Hypertension; tl3 - Immunization history:: Adult Immunizations up to date. - Social history:: Smoking status: unknown. - Ebola Screening: : No symptoms or risks identified at this time. - Family history:: not pertinent. ROS: 15:26 Constitutional: Negative for fever, chills, and weight loss, Eyes: Negative for injury, ondina pain, redness, and discharge, ENT: Negative for injury, pain, and discharge, Neck: Negative for injury, pain, and swelling, Cardiovascular: Negative for chest pain, palpitations, and edema, Abdomen/GI: Negative for abdominal pain, nausea, vomiting, diarrhea, and constipation, Back: Negative for injury and pain, : Negative for injury, bleeding, discharge, and swelling, MS/Extremity: Negative for injury and deformity, Skin: Negative for injury, rash, and discoloration, Neuro: Negative for headache, weakness, numbness, tingling, and seizure, Psych: Negative for depression, anxiety, suicide ideation, homicidal ideation, and hallucinations, Allergy/Immunology: Negative for hives, rash, and allergies, Endocrine: Negative for neck swelling, polydipsia, polyuria, polyphagia, and marked weight changes, Hematologic/Lymphatic: Negative for swollen nodes, abnormal bleeding, and unusual bruising. 15:26 Respiratory: Positive for cough. Exam: 15:26 Constitutional: This is a well developed, well nourished patient who is awake, alert, ondina and in no acute distress. Head/Face: Normocephalic, atraumatic. Eyes: Pupils equal round and reactive to light, extra-ocular motions intact. Lids and lashes normal. Conjunctiva and sclera are non-icteric and not injected. Cornea within normal limits. Periorbital areas with no swelling, redness, or edema. ENT: Nares patent. No nasal discharge, no septal abnormalities noted. Tympanic membranes are normal and external auditory canals are clear. Oropharynx with no redness, swelling, or masses, exudates, or evidence of obstruction, uvula midline. Mucous membranes moist. Neck: Trachea midline, no thyromegaly or masses palpated, and no cervical lymphadenopathy. Supple, full range of motion without nuchal rigidity, or vertebral point tenderness. No Meningismus. Chest/axilla: Normal chest wall appearance and motion. Nontender with no deformity. No lesions are appreciated. Cardiovascular: Regular rate and rhythm with a normal S1 and S2. No gallops, murmurs, or rubs. Normal PMI, no JVD. No pulse deficits. Respiratory: Lungs have equal breath sounds bilaterally, clear to auscultation and percussion. No rales, rhonchi or wheezes noted. No increased work of breathing, no retractions or nasal flaring. Abdomen/GI: Soft, non-tender, with normal bowel sounds. No distension or tympany. No guarding or rebound. No evidence of tenderness throughout. Back: No spinal tenderness. No costovertebral tenderness. Full range of motion. Skin: Warm, dry with normal turgor. Normal color with no rashes, no lesions, and no evidence of cellulitis. MS/ Extremity: Pulses equal, no cyanosis. Neurovascular intact. Full, normal range of motion. Neuro: Awake and alert, GCS 15, oriented to person, place, time, and situation. Cranial nerves II-XII grossly intact. Motor strength 5/5 in all extremities. Sensory grossly intact. Cerebellar exam normal. Normal gait. Psych: Awake, alert, with orientation to person, place and time. Behavior, mood, and affect are within normal limits. Vital Signs: 13:22 BP 146 / 84; Pulse 81; Resp 18; Temp 98.7(O); Pulse Ox 97% ; Weight 126.1 kg; Height 6 tl3 ft. 5 in. (195.58 cm); 14:52 BP 135 / 80; Pulse 78; Resp 18; Pulse Ox 96% ; tl3 15:50 BP 143 / 95; Pulse 80; Resp 18; Pulse Ox 96% on R/A; tl3 13:22 Body Mass Index 32.97 (126.10 kg, 195.58 cm) tl3 MDM: 13:04 Patient medically screened. [facility] 05/14 13:06 Order name: Basic Metabolic Panel; Complete Time: 15:12 [facility] 05/14 13:06 Order name: CBC with Diff; Complete Time: 15:12 [facility] 05/14 13:06 Order name: LFT's; Complete Time: 15:12 [facility] 05/14 13:06 Order name: Magnesium; Complete Time: 15:12 [facility] 05/14 13:06 Order name: NT PRO-BNP; Complete Time: 15:12 [facility] 05/14 13:06 Order name: PT-INR; Complete Time: 15:12 [facility] 05/14 13:06 Order name: Troponin (emerg Dept Use Only); Complete Time: 15:12 [facility] 05/14 13:06 Order name: XRAY Chest (1 view); Complete Time: 15:12 [facility] 05/14 13:06 Order name: EKG; Complete Time: 13:07 [facility] 05/14 13:06 Order name: Cardiac monitoring; Complete Time: 13:21 [facility] 05/14 13:06 Order name: EKG - Nurse/Tech; Complete Time: 13:21 [facility] 05/14 13:07 Order name: Lipase; Complete Time: 15:12 [facility] 05/14 14:24 Order name: Urine Dipstick--Ancillary (enter results) 05/14 13:06 Order name: IV Saline Lock; Complete Time: 13:21 [facility] 05/14 13:06 Order name: Labs collected and sent; Complete Time: 13:21 [facility] 05/14 13:06 Order name: O2 Per Protocol; Complete Time: 13:21 [facility] 05/14 13:06 Order name: O2 Sat Monitoring; Complete Time: 13:21 [facility] 05/14 13:06 Order name: Urine Dipstick-Ancillary (obtain specimen); Complete Time: 13:48 [facility] 05/14 15:33 Order name: Orthostatics: if neg dc [facility] Administered Medications: 13:41 Drug: NS 0.9% 1000 ml Route: IV; Rate: 1 bolus; Site: left hand; Delivery: Primary tl3 tubing; 14:54 Follow up: IV Status: Completed infusion; IV Intake: 1000ml tl3 Point of Care Testing: Blood Glucose: 13:22 Blood Glucose: 210 mg/dL; tl3 14:52 Blood Glucose: 160 mg/dL; tl3 Ranges: Critical Glucose Levels:Adult <50 mg/dl or >400 mg/dl <40 mg/dl or >180 mg/dl Disposition: 05/14/18 15:29 Discharged to Home. Impression: Type 1 diabetes mellitus, Weakness. - Condition is Stable. - Discharge Instructions: Type 1 Diabetes Mellitus, Diagnosis, Adult, Near-Syncope, Weakness, Fatigue, Weakness, [id number], Type 1 Diabetes Mellitus, Self Care, Adult, Type 1 Diabetes Mellitus, Diagnosis, Adult, [id number], Type 1 Diabetes Mellitus, Self Care, Adult, [id number]. - Medication Reconciliation Form, Thank You Letter, Antibiotic Education, Prescription Opioid Use form. - Follow up: Private Physician; When: 2 - 3 days; Reason: Recheck today's complaints, Continuance of care, Re-evaluation by your physician. - Problem is new. - Symptoms have improved. Signatures: Dispatcher [employer] Baron Suarez MD MD cha Lowrey, Tammy, RN RN tl3 Corrections: (The following items were deleted from the chart) 15:54 15:29 05/14/2018 15:29 Discharged to Home. Impression: Type 1 diabetes mellitus; tl3 Weakness. Condition is Stable. Forms are Medication Reconciliation Form, Thank You Letter, Antibiotic Education, Prescription Opioid Use. Follow up: Private Physician; When: 2 - 3 days; Reason: Recheck today's complaints, Continuance of care, Re-evaluation by your physician. Problem is new. Symptoms have improved. ondina
--- NOTE | 2018-05-14 15:31 | ER ---
Nurse's Notes [facility] Name: Juno Corcoran Jr Age: 43 yrs Sex: Male : 1975 Arrival Date: 05/14/2018 Time: 13:03 Bed 25 Private MD: Diagnosis: Type 1 diabetes mellitus;Weakness Presentation: 05/14 13:24 Presenting complaint: EMS states: elevated blood glucose of 245, type 2 diabetic, last tl3 meal at 1130am. Transition of care: patient was not received from another setting of care. Onset of symptoms was May 14, 2018 at 13:26. Risk Assessment: Do you want to hurt yourself or someone else? Patient reports no desire to harm self or others. Initial Sepsis Screen: Does the patient meet any 2 criteria? No. Patient's initial sepsis screen is negative. Does the patient have a suspected source of infection? No. Patient's initial sepsis screen is negative. Care prior to arrival: None. 13:24 Method Of Arrival: EMS: [facility] tl3 13:24 Acuity: KEVIN 3 tl3 Triage Assessment: 13:31 General: Appears in no apparent distress. comfortable, well groomed, well developed, tl3 well nourished, Behavior is calm, cooperative, appropriate for age. Pain: Denies pain. EENT: No deficits noted. No signs and/or symptoms were reported regarding the EENT system. Neuro: Level of Consciousness is awake, alert, obeys commands, Oriented to person, place, time, situation, Appropriate for age. Cardiovascular: Patient's skin is warm and dry. Rhythm is sinus rhythm. Respiratory: Airway is patent Respiratory effort is even, unlabored, Respiratory pattern is regular, symmetrical. GI: No signs and/or symptoms were reported involving the gastrointestinal system. : No signs and/or symptoms were reported regarding the genitourinary system. Derm: No signs and/or symptoms reported regarding the dermatologic system. Musculoskeletal: No signs and/or symptoms reported regarding the musculoskeletal system. Historical: - Allergies: 13:31 PENICILLINS; tl3 - Home Meds: :31 metformin 500 mg Oral tab 1 tab 2 times per day [Active]; losartan 100 mg oral tab tl3 [Active]; aspirin 81 mg Oral chew 1 tab once daily [Active]; diclofenac Oral once daily [Active]; atorvastatin 20 mg oral tab 1 tab once daily [Active]; Claritin 10 mg Oral tab 1 tab twice a day [Active]; zolpidem 10 mg Oral tab 1 tab as needed [Active]; Adipex-P 37.5 mg oral cap 1 cap once daily [Active]; - PMHx: 13:31 Diabetes - NIDDM; Hypertension; tl3 - Immunization history:: Adult Immunizations up to date. - Social history:: Smoking status: unknown. - Ebola Screening: : No symptoms or risks identified at this time. - Family history:: not pertinent. Screenin:50 Abuse screen: Denies threats or abuse. Nutritional screening: No deficits noted. tl3 Tuberculosis screening: No symptoms or risk factors identified. Fall Risk None identified. Assessment: 13:50 Reassessment: No changes from previously documented assessment. Patient is alert, tl3 oriented x 3, equal unlabored respirations, skin warm/dry/pink. pt reports being sick this week-end with cold like symptoms, at bedside. 14:52 Reassessment: Patient appears in no apparent distress at this time. No changes from tl3 previously documented assessment. Patient and/or family updated on plan of care and expected duration. Pain level reassessed. Patient is alert, oriented x 3, equal unlabored respirations, skin warm/dry/pink. pt in no distress, no needs at this time. 15:50 Reassessment: Patient appears in no apparent distress at this time. No changes from tl3 previously documented assessment. Patient and/or family updated on plan of care and expected duration. Pain level reassessed. Patient is alert, oriented x 3, equal unlabored respirations, skin warm/dry/pink. Vital Signs: 13:22 BP 146 / 84; Pulse 81; Resp 18; Temp 98.7(O); Pulse Ox 97% ; Weight 126.1 kg; Height 6 tl3 ft. 5 in. (195.58 cm); 14:52 BP 135 / 80; Pulse 78; Resp 18; Pulse Ox 96% ; tl3 15:50 BP 143 / 95; Pulse 80; Resp 18; Pulse Ox 96% on R/A; tl3 13:22 Body Mass Index 32.97 (126.10 kg, 195.58 cm) tl3 ED Course: 13:03 Patient arrived in ED. tl3 13:04 Baron Barahona MD is Attending Physician. [facility] 13:21 Hoa Brar, RN is Primary Nurse. tl3 13:22 Arm band placed on right wrist. EKG completed in triage. Results shown to MD. tl3 13:24 EKG done, by engineer technical staff. reviewed by Baron Barahona MD. sm3 13:26 Triage completed. tl3 13:34 Initial lab(s) drawn, by oh, sent to lab. Inserted saline lock: 22 gauge in left hand, tl3 using aseptic technique. Blood collected. 13:41 XRAY Chest (1 view) In Process Unspecified. EDMS 15:50 Patient has correct armband on for positive identification. tl3 15:50 IV discontinued, intact, bleeding controlled, No redness/swelling at site. Pressure tl3 dressing applied. 15:53 No provider procedures requiring assistance completed. tl3 Administered Medications: 13:41 Drug: NS 0.9% 1000 ml Route: IV; Rate: 1 bolus; Site: left hand; Delivery: Primary tl3 tubing; 14:54 Follow up: IV Status: Completed infusion; IV Intake: 1000ml tl3 Point of Care Testing: Blood Glucose: 13:22 Blood Glucose: 210 mg/dL; tl3 14:52 Blood Glucose: 160 mg/dL; tl3 Ranges: Intake: 14:54 IV: 1000ml; Total: 1000ml. tl3 Outcome: 15:29 Discharge ordered by . ondina 15:50 Discharged to home ambulatory. tl3 15:50 Condition: stable 15:50 Discharge instructions given to patient, family, Instructed on discharge instructions, follow up and referral plans. medication usage, Demonstrated understanding of instructions, follow-up care, medications, Prescriptions given X 15:54 Patient left the ED. tl3 Signatures: Dispatcher [employer] Baron Suarez MD MD cha Lowrey, Tammy, RN RN tl3 Liv Rhodes 3 Corrections: (The following items were deleted from the chart) 14:55 13:50 Reassessment: No changes from previously documented assessment. Patient is alert, tl3 oriented x 3, equal unlabored respirations, skin warm/dry/pink. at bedside tl3
[2018-05-14 15:58] VITALS: TEMP 98.7
[2018-05-14 15:59] VITALS: BP 143/95; O2SAT 96
--- NOTE | 2018-05-14 17:42 | EKG ---
Test Date: 2018-05-14 Test Time: 13:14:40 Toddler Lead Teacher: VONDA MEASUREMENT RESULTS: Intervals: Rate: 82 VT: 164 QRSD: 98 QT: 374 QTc: 436 [place]: P: 46 VT: 164 QRS: 81 T: 50 INTERPRETIVE STATEMENTS: Normal sinus rhythm Normal ECG Compared to ECG 08/26/2014 06:35:10 No significant changes Electronically Signed On 05-14-18 17:41:34 CDT by Hernandez Lam
[2018-05-14 18:12] LABS: Urine Blood NEGATIVE (NEG); Urine Glucose 1+ (NEG); Urine Protein TRACE (NEG); Urine Specific Gravity 1.025 (1.005-1.030); Urine pH 5.5 (5.0-7.0)
== END 2018-05-14 15:54 | disposition home or self-care (01) ==
LOC: ER 12:59
DX: E10.9 Type 1 diabetes mellitus without complications (principal); I10 Essential (primary) hypertension; Z79.82 Long term (current) use of aspirin; Z88.0 Allergy status to penicillin
CPT/HCPCS: 36415; 71045; 80048; 80076; 81003; 82962; 83690; 83735; 83880; 84484; 85025; 85610; 93005; 96360; 99285; J7030

== ENCOUNTER 2023-01-16 10:02 | Emergency (ER) | payer BC, OTHER ==
--- OUTSIDE RECORDS SUMMARY | 2023-01-16 10:21 | XMS REPORT | Continuity of Care Document ---
:1975 Author Organization [facility] t Address [address] [place] [address] Care Team Providers Name Role Phone Deb Attending Clinician Unavailable Deb Admitting Clinician Unavailable Payers Payer Name Policy Type Policy Number Effective Date Expiration Date [place] [facility] (HMO) [id number] 2022 00:00:00 [place] [id number] 2018 00:00:00 [place] Problems Condition Condition Condition Status Onset Resolution Last Treating Co mments Source Name Details Category Date Date Treatment Clinician Date Type 2 Type 2 Problem Active [facility] diabetes Diabetes da mellitus [facility] Type II Type II Problem Active [facility] diabetes Diabetes da mellitus [facility] uncontroll Uncontroll Gr oup ed ed Vitamin D Vitamin D Problem Active [facility] deficiency Deficiency [facility] Hypertrigl Hypertrigl Problem Active M [facility] yceridemia yceridemia [facility] Dyslipidem Dyslipidem Problem Active [facility] Hyperlipid Hyperlipid Problem Active [facility] emia emia [facility] Increased Increased Problem Active [facility] body mass Body Mass da index Index Medical Group Obesity Obesity Problem Active [facility] Tobacco Tobacco Problem Active [facility] user User [facility] Essential Essential Problem Active [facility] hypertensi Hypertensi da on on Medical Group Upper Upper Problem Active [facility] respirator Respirator da y y Medical infection Infection Grou p Acute Acute Problem Active [facility] bronchitis Bronchitis [facility] Allergic Allergic Problem Active [facility] rhinitis Rhinitis [facility] Gastroesop Gastroesop Problem Active M [facility] hageal hageal da reflux Reflux Medical disease Disease Group Foot pain Foot Pain Problem Active [facility] Cramp in Cramp in Problem Active [facility] lower limb Lower Limb [facility] Fatigue Fatigue Problem Active [facility] Abnormal Abnormal Problem Active [facility] glucose Glucose da level Level Medical Group Pain in Pain in Problem Active [facility] left foot Left Foot [facility] Allergies, Adverse Reactions, Alerts Allergy Allergy Status Severity Reaction(s) Onset Inactive Treating Comm ents Source Name Type Date Date Clinician Levaquin Allergy Active Itching [facility] Lisinopr Allergy Active [place] PENICILL Allergy Active Hives [facility] INS to [facility] Social History Smoking Status Start Date Stop Date Source Current Every Day Smoker [facility] Medications Ordered Filled Start Stop Current Ordering Indication Dosage Frequency Signature Comments Components Source Medication Medication Date Date Medication? Clinician (SIG) Name Name Adult Low Adult Low No 1 Q1D Adult Low [facility] Dose Dose Dose da Aspirin 81 Aspirin 81 Aspirin 81 Medical mg mg mg Group tablet,terence tablet,terence tablet,del yed release yed release ayed Take 1 Take 1 release tablet tablet Take 1 every day every day tablet by oral by oral every day route. route. by oral route. atorvastati atorvastati No atorvastat [place] n 20 mg n 20 mg in 20 mg da tablet Take tablet Take tablet Medical 1 tablet by 1 tablet by Take 1 Group mouth mouth tablet by daily. daily. mouth daily. cyclobenzap cyclobenzap No cyclobenza [place] rine 10 mg rine 10 mg jasmyne 10 da tablet TAKE tablet TAKE mg tablet Medical 1 TABLET BY 1 TABLET BY TAKE 1 Group MOUTH THREE MOUTH THREE TABLET BY TIMES DAILY TIMES DAILY MOUTH FOR 7 DAYS FOR 7 DAYS THREE TIMES DAILY FOR 7 DAYS diclofenac diclofenac No diclofenac [place] 75 75 75 da mg-misopros mg-misopros mg-misopro Medical rico 200 mcg rico 200 mcg stol 200 Group tablet,imme tablet,imme mcg diate,delay diate,delay tablet,imm ed release ed release ediate,del TAKE 1 TAKE 1 ayed TABLET BY TABLET BY release MOUTH TWICE MOUTH TWICE TAKE 1 A DAY A DAY TABLET BY MOUTH TWICE A DAY diclofenac diclofenac No diclofenac [place] sodium 75 sodium 75 sodium 75 da mg mg mg Medical tablet,terence tablet,terence tablet,del Group yed release yed release ayed TAKE 1 TAKE 1 release TABLET BY TABLET BY TAKE 1 MOUTH TWICE MOUTH TWICE TABLET BY DAILY DAILY MOUTH NEEDED FOR NEEDED FOR TWICE 20 DAYS 20 DAYS DAILY NEEDED FOR 20 DAYS Farxiga 10 Farxiga 10 No Farxiga 10 [facility] mg tablet mg tablet mg tablet da TAKE 1 TAKE 1 TAKE 1 Medical TABLET BY TABLET BY TABLET BY Group MOUTH ONCE MOUTH ONCE MOUTH ONCE DAILY FOR DAILY FOR DAILY FOR 30 DAYS 30 DAYS 30 DAYS losartan losartan No losartan [facility] 100 mg 100 mg 100 mg da tablet Take tablet Take tablet Medical 1 tablet by 1 tablet by Take 1 Group mouth mouth tablet by daily. daily. mouth daily. metformin metformin No metformin [facility] 1,000 mg 1,000 mg 1,000 mg da tablet TAKE tablet TAKE tablet Medical 1 TABLET BY 1 TABLET BY TAKE 1 Group MOUTH TWICE MOUTH TWICE TABLET BY DAILY DAILY MOUTH TWICE DAILY phentermine phentermine No phentermin [facility] 37.5 mg 37.5 mg e 37.5 mg da tablet TAKE tablet TAKE tablet Medical 1 TABLET BY 1 TABLET BY TAKE 1 Group MOUTH ONCE MOUTH ONCE TABLET BY DAILY DAILY MOUTH ONCE DAILY tizanidine tizanidine No tizanidine [facility] 4 mg tablet 4 mg tablet 4 mg d a TAKE 1 TAKE 1 tablet Medical TABLET BY TABLET BY TAKE 1 Demi up MOUTH ONCE MOUTH ONCE TABLET BY DAILY AT DAILY AT MOUTH ONCE BEDTIME FOR BEDTIME FOR DAILY AT 30 DAYS 30 DAYS BEDTIME FOR 30 DAYS zolpidem 10 zolpidem 10 No zolpidem [facility] mg tablet mg tablet 10 mg da TAKE 1 TAKE 1 tablet Medical TABLET BY TABLET BY TAKE 1 Demi up MOUTH ONCE MOUTH ONCE TABLET BY DAILY DAILY MOUTH ONCE DAILY Adult Low Adult Low No 1 Q1D Adult Low [facility] Dose Dose Dose da Aspirin 81 Aspirin 81 Aspirin 81 Medical mg mg mg Group tablet,terence tablet,terence tablet,del yed release yed release ayed Take 1 Take 1 release tablet tablet Take 1 every day every day tablet by oral by oral every day route. route. by oral route. albuterol albuterol No albuterol [place] sulfate HFA sulfate HFA sulfate da 90 90 HFA 90 Medical mcg/actuati mcg/actuati mcg/actuat Group on aerosol on aerosol ion inhaler inhaler aerosol INHALE 2 INHALE 2 inhaler PUFFS BY PUFFS BY INHALE 2 MOUTH EVERY MOUTH EVERY PUFFS BY 6 HOURS 6 HOURS MOUTH NEEDED FOR NEEDED FOR EVERY 6 WHEEZING WHEEZING HOURS FOR 14 DAYS FOR 14 DAYS NEEDED FOR WHEEZING FOR 14 DAYS atorvastati atorvastati No atorvastat [place] n 20 mg n 20 mg in 20 mg da tablet Take tablet Take tablet Medical 1 tablet by 1 tablet by Take 1 Group mouth mouth tablet by daily. daily. mouth daily. diclofenac diclofenac No diclofenac [facility] 75 75 75 da mg-misopros mg-misopros mg-misopro Medical rico 200 mcg rico 200 mcg stol 200 Group tablet,imme tablet,imme mcg diate,delay diate,delay tablet,imm ed release ed release ediate,del TAKE 1 TAKE 1 ayed TABLET BY TABLET BY release MOUTH TWICE MOUTH TWICE TAKE 1 DAILY DAILY TABLET BY MOUTH TWICE DAILY Farxiga 10 Farxiga 10 No Farxiga 10 [facility] mg tablet mg tablet mg tablet da TAKE 1 TAKE 1 TAKE 1 Medical TABLET BY TABLET BY TABLET BY Group MOUTH ONCE MOUTH ONCE MOUTH ONCE DAILY FOR DAILY FOR DAILY FOR 90 DAYS 90 DAYS 90 DAYS gabapentin gabapentin No gabapentin [facility] 100 mg 100 mg 100 mg da capsule capsule capsule Medica l TAKE 1 TAKE 1 TAKE 1 Group CAPSULE BY CAPSULE BY CAPSULE BY MOUTH TWICE MOUTH TWICE MOUTH DAILY DAILY TWICE DAILY losartan losartan No losartan [facility] 100 mg 100 mg 100 mg da tablet Take tablet Take tablet Medical 1 tablet by 1 tablet by Take 1 Group mouth mouth tablet by daily. daily. mouth daily. metformin metformin No metformin [facility] 1,000 mg 1,000 mg 1,000 mg da tablet TAKE tablet TAKE tablet Medical 1 TABLET BY 1 TABLET BY TAKE 1 Group MOUTH TWICE MOUTH TWICE TABLET BY DAILY DAILY MOUTH TWICE DAILY phentermine phentermine No phentermin [facility] 37.5 mg 37.5 mg e 37.5 mg da tablet TAKE tablet TAKE tablet Medical 1 TABLET BY 1 TABLET BY TAKE 1 Group MOUTH ONCE MOUTH ONCE TABLET BY DAILY DAILY MOUTH ONCE DAILY tizanidine tizanidine No tizanidine [facility] 4 mg tablet 4 mg tablet 4 mg d a TAKE 1 TAKE 1 tablet Medical TABLET BY TABLET BY TAKE 1 Demi up MOUTH ONCE MOUTH ONCE TABLET BY DAILY AT DAILY AT MOUTH ONCE BEDTIME FOR BEDTIME FOR DAILY AT 30 DAYS 30 DAYS BEDTIME FOR 30 DAYS zolpidem 10 zolpidem 10 No zolpidem [facility] mg tablet mg tablet 10 mg da TAKE 1 TAKE 1 tablet Medical TABLET BY TABLET BY TAKE 1 Demi up MOUTH ONCE MOUTH ONCE TABLET BY DAILY DAILY MOUTH ONCE DAILY Immunizations Ordered Immunization Filled Immunization Date Status Commen ts Source Name Name Tdap Tdap 2022-01-05 Completed [facility] influenza, influenza, 2019-10-10 Completed [facility] injectable, injectable, 13:12:41 Medical Grou p quadrivalent, quadrivalent, preservative free preservative free influenza, influenza, 2019-10-10 Completed [facility] injectable, injectable, 13:12:41 Medical Grou p quadrivalent, quadrivalent, preservative free preservative free influenza, high dose influenza, high dose 2014-08-25 Completed [facility] seasonal seasonal 00:00:00 Medical Group pneumococcal, pneumococcal, 2014-08-25 Completed [place] [facility] unspecified unspecified 00:00:00 Medical Grou p formulation formulation influenza, high dose influenza, high dose 2014-08-25 Completed [facility] seasonal seasonal 00:00:00 Medical Group pneumococcal, pneumococcal, 2014-08-25 Completed [place] [facility] unspecified unspecified 00:00:00 Medical Grou p formulation formulation pneumococcal pneumococcal 2014-08-07 Completed [facility] polysaccharide PPV23 polysaccharide PPV23 00:00:00 Medical Group pneumococcal pneumococcal 2014-08-07 Completed [facility] polysaccharide PPV23 polysaccharide PPV23 00:00:00 Medical Group Vital Signs Vital Name Observation Time Observation Value Comments Source BP Diastolic 2022-11-29 00:00:00 101 mm[Hg] [facility] Height 2022-11-29 00:00:00 77 [in_i] [facility] BMI (Body Mass 2022-11-29 00:00:00 31.2 kg/m2 [facility] Medical Index) Group BP Systolic 2022-11-29 00:00:00 163 mm[Hg] [facility] Body Weight 2022-11-29 00:00:00 4212 [oz_av] [facility] BP Diastolic 2021-09-30 00:00:00 86 mm[Hg] [facility] Height 2021-09-30 00:00:00 77 [in_i] [facility] BMI (Body Mass 2021-09-30 00:00:00 30.1 kg/m2 [facility] Medical Index) Group BP Systolic 2021-09-30 00:00:00 126 mm[Hg] [facility] Body Weight 2021-09-30 00:00:00 4064 [oz_av] [facility] BP Diastolic 2021-08-31 00:00:00 84 mm[Hg] [facility] Height 2021-08-31 00:00:00 77 [in_i] [facility] BMI (Body Mass 2021-08-31 00:00:00 30.1 kg/m2 [facility] Medical Index) Group BP Systolic 2021-08-31 00:00:00 124 mm[Hg] [facility] Body Weight 2021-08-31 00:00:00 4066 [oz_av] [facility] BP Diastolic 2021-06-23 00:00:00 89 mm[Hg] [facility] Height 2021-06-23 00:00:00 77 [in_i] [facility] BMI (Body Mass 2021-06-23 00:00:00 30.4 kg/m2 [facility] Medical Index) Group BP Systolic 2021-06-23 00:00:00 123 mm[Hg] [facility] Body Weight 2021-06-23 00:00:00 4104 [oz_av] [facility] BP Diastolic 2021-04-26 00:00:00 95 mm[Hg] [facility] Height 2021-04-26 00:00:00 77 [in_i] [facility] BMI (Body Mass 2021-04-26 00:00:00 30.6 kg/m2 [facility] Medical Index) Group BP Systolic 2021-04-26 00:00:00 147 mm[Hg] [facility] Body Weight 2021-04-26 00:00:00 4134 [oz_av] [facility] Height 2021-01-18 00:00:00 77 [in_i] [facility] BMI (Body Mass 2021-01-18 00:00:00 30.7 kg/m2 [facility] Medical Index) Group Body Weight 2021-01-18 00:00:00 4144 [oz_av] [facility] BP Diastolic 2020-08-13 00:00:00 85 mm[Hg] [facility] Height 2020-08-13 00:00:00 77 [in_i] [facility] BMI (Body Mass 2020-08-13 00:00:00 30.7 kg/m2 [facility] Medical Index) Group BP Systolic 2020-08-13 00:00:00 125 mm[Hg] [facility] Body Weight 2020-08-13 00:00:00 4144 [oz_av] [facility] BP Diastolic 2020-08-12 00:00:00 84 mm[Hg] [facility] Height 2020-08-12 00:00:00 77 [in_i] [facility] BMI (Body Mass 2020-08-12 00:00:00 30.7 kg/m2 [facility] Medical Index) Group BP Systolic 2020-08-12 00:00:00 123 mm[Hg] [facility] Body Weight 2020-08-12 00:00:00 4149 [oz_av] [facility] BP Diastolic 2020-06-24 00:00:00 92 mm[Hg] [facility] Height 2020-06-24 00:00:00 77 [in_i] [facility] BMI (Body Mass 2020-06-24 00:00:00 31.5 kg/m2 [facility] Medical Index) Group BP Systolic 2020-06-24 00:00:00 136 mm[Hg] [facility] Body Weight 2020-06-24 00:00:00 4247 [oz_av] [facility] Height 2020-04-07 00:00:00 77 [in_i] [facility] BMI (Body Mass 2020-04-07 00:00:00 32 kg/m2 [facility] [facility] Index) Group Body Weight 2020-04-07 00:00:00 4320 [oz_av] [facility] BP Diastolic 2020-02-20 00:00:00 93 mm[Hg] [facility] Height 2020-02-20 00:00:00 77 [in_i] [facility] BMI (Body Mass 2020-02-20 00:00:00 32 kg/m2 [facility] [facility] Index) Group BP Systolic 2020-02-20 00:00:00 144 mm[Hg] [facility] Body Weight 2020-02-20 00:00:00 4320 [oz_av] [facility] BP Diastolic 2020-01-22 00:00:00 93 mm[Hg] [facility] Height 2020-01-22 00:00:00 77 [in_i] [facility] BMI (Body Mass 2020-01-22 00:00:00 31.9 kg/m2 [facility] [facility] Index) Group BP Systolic 2020-01-22 00:00:00 134 mm[Hg] [facility] Body Weight 2020-01-22 00:00:00 4305 [oz_av] [facility] BP Diastolic 2019-10-10 00:00:00 87 mm[Hg] [facility] Height 2019-10-10 00:00:00 77 [in_i] [facility] BMI (Body Mass 2019-10-10 00:00:00 32.2 kg/m2 [facility] [facility] Index) Group BP Systolic 2019-10-10 00:00:00 132 mm[Hg] [facility] Body Weight 2019-10-10 00:00:00 4344 [oz_av] [facility] BP Diastolic 2019-01-09 00:00:00 99 mm[Hg] [facility] Height 2019-01-09 00:00:00 77 [in_i] [facility] BMI (Body Mass 2019-01-09 00:00:00 31.7 kg/m2 [facility] [employer] [facility] Index) Group BP Systolic 2019-01-09 00:00:00 128 mm[Hg] [facility] Body Weight 2019-01-09 00:00:00 4272 [oz_av] [facility] BP Diastolic 2018-12-12 00:00:00 94 mm[Hg] [facility] Height 2018-12-12 00:00:00 77 [in_i] [facility] BMI (Body Mass 2018-12-12 00:00:00 32.1 kg/m2 [facility] Medical Index) Group BP Systolic 2018-12-12 00:00:00 141 mm[Hg] [facility] Body Weight 2018-12-12 00:00:00 4336 [oz_av] [facility] BP Diastolic 2018-10-05 00:00:00 88 mm[Hg] [facility] Height 2018-10-05 00:00:00 77 [in_i] [facility] BMI (Body Mass 2018-10-05 00:00:00 32.1 kg/m2 [facility] Medical Index) Group BP Systolic 2018-10-05 00:00:00 132 mm[Hg] [facility] Body Weight 2018-10-05 00:00:00 270.4 [lb_av] [facility] BP Diastolic 2018-10-01 00:00:00 92 mm[Hg] [facility] Height 2018-10-01 00:00:00 77 [in_i] [facility] BMI (Body Mass 2018-10-01 00:00:00 32 kg/m2 [facility] Medical Index) Group BP Systolic 2018-10-01 00:00:00 134 mm[Hg] [facility] Body Weight 2018-10-01 00:00:00 4320 [oz_av] [facility] Procedures Procedure Date / Time Performed Performing Clinician Sourc e Unlisted Px Dentalvlr 2020-03-28 00:00:00 [facility] Medical Strux Group Knee Surgery 2016-08-07 00:00:00 [facility] Plan of Care Planned Activity Planned Date Details Comments Source Diagnostic Test 2022-11-29 hemoglobin A1c, QN, [facility] Pending 00:00:00 blood [code = Group hemoglobin A1c, QN, blood] Diagnostic Test 2022-11-29 BMP, serum or plasma [facility] Pending 00:00:00 [code = BMP, serum Group or plasma] Diagnostic Test 2022-11-29 lipid panel, serum [facility] [employer] [facility] Pending 00:00:00 [code = lipid panel, Group serum] Diagnostic Test 2022-11-29 PSA, serum or plasma Ramosgarima bhatta Medical Pending 00:00:00 [code = PSA, serum Group or plasma] Future Appointment 2023-05-31 Leisa Hughes, [address] [facility] 16:30:00 [facility] [address] [address] Encounters Start End Encounter Admission Attending Care Care Encounter Source Date/Time Date/Time Type Type Clinicians Facility Department ID 2022-11-29 2022-11-29 Outpatient Zuniga_F [facility] [id number] [facility] 00:00:00 00:00:00 0425 Medical Group 2022-11-29 2022-11-29 Leisa [facility] [place] - [id number] [facility] 00:00:00 00:00:00 Odin Romero Medical MD: [address] [place] [address], [facility] [address], [place] [address] , Ph. 2022-11-16 2022-11-16 Outpatient [facility]F [facility] [id number] [facility] 00:00:00 00:00:00 0412 [facility] 2022-11-16 2022-11-16 Outpatient Zuniga_F [facility] [id number] [facility] 00:00:00 00:00:00 0424 [facility] 2022-08-27 2022-08-27 Outpatient Zuniga_F [facility] [id number] [place] 00:00:00 00:00:00 0302 [facility] 2022-08-27 2022-08-27 [place] [id number] [facility] 00:00:00 00:00:00 0310 [facility] 2022-08-27 2022-08-27 Outpatient Z[facility]iga_F [facility] [id number] [facility] 00:00:00 00:00:00 0121 [facility] 2022-08-27 2022-08-27 Outpatient Z[facility]iga_F [facility] [id number] [place] 00:00:00 00:00:00 0214 [facility] 2022-08-27 2022-08-27 Outpatient Zuniga_F [facility] [id number] [place] 00:00:00 00:00:00 0215 [facility] 2022-07-23 2022-07-23 Outpatient Z[facility]iga_F [facility] [id number] [facility] 00:00:00 00:00:00 1217 [facility] 2022-07-23 2022-07-23 Outpatient Zuniga_F [facility] MM[facility] [id number] [facility] 00:00:00 00:00:00 1220 [facility] 2022-06-18 2022-06-18 Outpatient Zuniga_F [facility] [id number] [place] 00:00:00 00:00:00 1112 [facility] 2021-12-29 2021-12-29 Outpatient Zuniga_F [facility] [id number] 2021 [place] 04:08:00 04:08:00 0525 [facility] 2021-11-24 2021-11-24 Outpatient Zuniga_F [facility] [id number] 2021 [place] 03:36:00 03:36:00 0420 [facility] 2021-10-20 2021-10-20 Outpatient Zuniga_F [facility] [id number] [facility] 03:12:00 03:12:00 0316 [facility] 2021-09-30 2021-09-30 Leisa Zuniga_F MMG [place] - [id number] [facility] 00:00:00 00:00:00 Sarath Thayer 0224 Odin Hernandez MD: [address] [place] [address] [address] [address] , Ph. 2021-09-15 2021-09-15 Outpatient Z[facility]iga_F [facility] [id number] 2021 [place] 03:41:00 03:41:00 0209 [facility] 2021-08-31 2021-08-31 Leisa Zuniga_[place] MM[place] - [id number] [facility] 00:00:00 00:00:00 Sarath Thayer 0125 Odin Hernandez MD: [address] [place] [address], [place] [address] , Ph. 2021-08-11 2021-08-11 Outpatient Zuniga_F [facility] MM[facility] [id number] 2021 [facility] 03:07:00 03:07:00 0105 [facility] 2021-07-08 2021-07-08 Outpatient Zuniga_F [facility] MM[facility] [id number] [place] 01:01:00 01:01:00 1202 Medical Group 2021-06-24 2021-06-24 Outpatient Zuniga_F [facility] MM[facility] [id number] [place] 05:31:00 05:31:00 1118 Medical Group 2021-06-23 2021-06-23 Le[place] Zuniga_[place] - [id number] [facility] 00:00:00 00:00:00 Sarath Thayer 1117 Odin Hernandez MD: [address] [place] [address] [address] [address] , Ph. 2021-05-26 2021-05-26 Outpatient Z[facility]iga_F [facility] [id number] 2020 [place] 04:16:00 04:16:00 1020 Medical Group 2021-04-26 2021-04-26 Leisa Zuniga_F MM[place] - [id number] 21 [facility] 00:00:00 00:00:00 Sarath Thayer 0920 Odin Hernandez MD: [address] [place] [address] , Ph. 2021-04-12 2021-04-12 Outpatient Zuniga_F [facility] [id number] 2020 [place] 12:19:00 12:19:00 0906 [facility] 2021-03-08 2021-03-08 Outpatient Zuniga_F [facility] MM[facility] [id number] 2020 [place] 12:23:00 12:23:00 0802 [facility] 2021-02-01 2021-02-01 Outpatient Zuniga_F [facility] MM[facility] [id number] 2020 [place] 12:18:00 12:18:00 0628 [facility] 2021-01-28 2021-01-28 Outpatient Zuniga_F [facility] [id number] [place] 04:19:00 04:19:00 0624 [facility] 2021-01-18 2021-01-18 Leisa Zuniga_[place] - [id number] 21 [place] 00:00:00 00:00:00 Sarath 0614 [facility] MD: [address] [place] [address] [address], [place] [address] , Ph. 2020-11-06 2020-11-06 Outpatient Zuniga_F [facility] [id number] 2020 [place] 01:02:00 01:02:00 0402 [facility] 2020-10-29 2020-10-29 Outpatient Zuniga_F [facility] MM[facility] [id number] [place] 09:38:00 09:38:00 0325 [facility] 2020-10-02 2020-10-02 Outpatient Zuniga_F [facility] [id number] 2020 [place] 01:01:00 01:01:00 0226 [facility] 2020-09-29 2020-09-29 Outpatient Zuniga_F [facility] MM[facility] [id number] 2020 [place] 12:30:00 12:30:00 0223 [facility] 2020-09-15 2020-09-15 Outpatient Zuniga_F [facility] [id number] 2020 [place] 09:53:00 09:53:00 0209 [facility] 2020-08-28 2020-08-28 Outpatient Zuniga_F [facility] [id number] 2020 [place] 01:05:00 01:05:00 0122 [facility] 2020-08-13 2020-08-13 Leisa Zuniga_F [place] - [id number] 21 [place] 00:00:00 00:00:00 Sarath Thayer 0107 Odin Hernandez Medical MD: [address] [place] [address], [place] [address] , Ph. 2020-08-12 2020-08-12 Leisa Zuniga_[place] - [id number] 21 [facility] 00:00:00 00:00:00 Sarath Thayer 0106 Odin Hernandez Medical MD: [address] [place] [address] [address], [place] [address] , Ph. 2020-08-11 2020-08-11 Outpatient Zuniga_F [facility] MM[facility] [id number] [place] 06:29:00 06:29:00 0105 Medical Group 2020-07-24 2020-07-24 Outpatient Zuniga_F [facility] MMG [id number] [place] 01:04:00 01:04:00 1218 Medical Group 2020-06-24 2020-06-24 Leisa Zuniga_F MM[place] - [id number] 20 [facility] 00:00:00 00:00:00 Sarath Thayer 1118 Odin Hernandez Medical MD: [address] [place] [address], [place] [address] , Ph. 2020-06-16 2020-06-16 Outpatient Zuniga_F [facility] MMG [id number] [place] 03:37:00 03:37:00 1110 Medical Group 2020-04-07 2020-04-07 Leisa Zuniga_F MM[place] - [id number] 20 [facility] 00:00:00 00:00:00 Sarath Thayer 0901 Odin Hernandez MD: [address] [address], [place] [address] , Ph. 2020-03-18 2020-03-18 Outpatient Zuniga_F [facility] MM[facility] [id number] [place] 05:43:00 05:43:00 0812 Medical Group 2020-02-20 2020-02-20 Leisa Zuniga_F MM[place] - [id number] 20 [place] 00:00:00 00:00:00 Sarath Thayer 16 Odin Hernandez MD: [address] [place] [address], [place] [address] , Ph. 2020-01-24 2020-01-24 Outpatient Zuniga_F [facility] MM[facility] [id number] [place] 09:03:00 09:03:00 0619 Medical Group 2020-01-23 2020-01-23 Outpatient Zuniga_F [facility] MMG [id number] [place] 12:26:00 12:26:00 0618 Medical Group 2020-01-22 2020-01-22 Leisa Zuniga_F MM[place] - [id number] 20 [facility] 00:00:00 00:00:00 Sarath Thayer 17 Odin Hernandez MD: [address] [place] [address], [place] [address] , Ph. 2020-01-03 2020-01-03 Outpatient Zuniga_F [facility] [id number] [facility] 12:53:00 12:53:00 0529 Medical Group 2019-11-29 2019-11-29 Outpatient Zuniga_F [facility] MM[facility] [id number] [facility] 12:49:00 12:49:00 0424 Medical Group 2019-10-25 2019-10-25 Outpatient Zuniga_F [facility] MM[facility] [id number] [place] 01:18:00 01:18:00 0320 Medical Group 2019-10-14 2019-10-14 Outpatient Zuniga_F [facility] [id number] [place] 05:58:00 05:58:00 0309 Medical Group 2019-10-10 2019-10-10 Le[place] Zuniga_[place] - [id number] 20 [facility] 00:00:00 00:00:00 Sarath Thayer 0305 Odin Hernandez MD: [address] [place] [address] Family [address], [place] [address] , Ph. 2019-08-15 2019-08-15 Outpatient Zuniga_F [facility] [id number] [place] 04:39:00 04:39:00 0109 Medical Group 2019-01-09 2019-01-09 [facility] [place] - [id number] [place] 00:00:00 00:00:00 Sarath Thayer 0605 Odin Hernandez MD: [address] [place] [address] [address], [place] [address] , Ph. 2018-12-12 2018-12-12 [place] [facility] [place] - [phone] [place] 00:00:00 00:00:00 Sarath Thayer 0508 Odin Hernandez MD: [address] [place] [address] [address], [place] [address] , Ph. 2018-10-05 2018-10-05 Vinny [facility] [place] - [phone] [place] 00:00:00 00:00:00 Cesar Reilly MD: Medical Medica l [address] [place] [address], General [address], [place] [address] , Ph. [phone] 2018-10-01 2018-10-01 Leisa [facility] [place] - [phone] [place] 00:00:00 00:00:00 Sarath Thayer 0225 Odin Hernandez MD: [address] [place] [address] [address], [place] [address] , Ph. Results Test Description Test Time Test Comments Results Result Comments Source CBC W Auto Differential panel - Blood 2019-01-09 07:30:00 Test Item Value Reference Range Interpretation Comme nts white blood count (test code = white blood count) 10.3 K/uL 4.0- 12.3 red blood count (test code = red blood count) 4.95 M/uL 3.80-5.8 0 Hemoglobin [Mass/volume] in Blood (test code = 718-7) 15.5 g/dL 11.7-17.2 hematocrit (test code = hematocrit) 46.6 % 35.0-51.0 Erythrocyte mean corpuscular volume [Entitic volume] (test 94.1 fL 78-96 code = 68081-8) Erythrocyte mean corpuscular hemoglobin [Entitic mass] (test 31.4 p g 26.8-33.4 code = 27030-4) mean corpuscular HGB conc (test code = mean corpuscular HGB 33.3 g/dL 32.3-36.7 conc) red cell distribution width (test code = red cell 11.5 % 11.6 -15.4 L distribution width) Platelets [#/volume] in Blood (test code = 85478-9) 255 K/uL 11 5-328 Platelet mean volume [Entitic volume] in Blood (test code = 7.7 fL 8.4-11.8 L 51239-2) Neutrophils.band form/100 leukocytes in Blood (test code = 62.5 % 44.7-82.4 17242-4) Lymphocytes/100 leukocytes in Body fluid (test code = 27.2 % 10.0-50.0 44753-1) Monocytes/100 leukocytes in Blood by Automated count (test 6.9 % 3.9-13.4 code = 5905-5) Eosinophils/100 leukocytes in Blood by Automated count (test 2.6 % 0.0-6.4 code = 713-8) Basophils/100 leukocytes in Unspecified specimen (test code = 0.9 % 0.0-0.72 H 74748-3) [facility] [id number] 07:30:00 NeutrophilsBandLymphocyteAtypical LymphMonocyteBasophilPlatelet EstimatePlatelet MorphologyCopiah County Medical CenterHemoglobin A1c [Mass/volume] in [id number] 07:30:00 Test Item Value Reference Range Interpretation Comments Hemoglobin A1c in Blood (test code = 9.4 % 4.0-6.0 H 08404-1) [facility] - Serum or [id number] 07:30:00 Test Item Value Reference Range Interpretation Comments cholesterol level (test code = 191 mg/dL 150-200 cholesterol level) triglycerides level (test code = 216 mg/dL <150 H triglycerides level) HDL cholesterol (test code = HDL 25 mg/dL >55 L cholesterol) LDL cholesterol direct (test code = 129 mg/dL <100 H LDL cholesterol direct) cholesterol risk ratio (test code = 7.640 cholesterol risk ratio) [facility] Center[facility]albumin [Mass/volume] in [id number] 07:30:00 Test Item Value Reference Range Interpretation Comments microalbumin random (test code = 55.9 mg/L 0-20 H microalbumin random) [facility]
[2023-01-16] MEDS ORDERED: FAMOTIDINE 20 MG/2 ML VIAL IV ONE ×2 (10:49)
[2023-01-16] MEDS ORDERED: NA CHLORIDE 0.9% 1,000 ML ONE (10:49)
[2023-01-16] MEDS ORDERED: ONDANSETRON 4 MG/2 ML VIAL ONE (10:49)
[2023-01-16 10:50] LABS: Absolute Lymphocytes (CBC) 2.5 K/uL (0.7-4.9); Hematocrit 48.4 % (39.6-49.0); Lymphocytes % 24.4 % (15.3-44.8); MCV 92.2 fL (80-100); MPV 7.8 fL (7.6-11.3); RBC Red Blood Cell Count 5.25 M/uL (4.33-5.43)
[2023-01-16 11:08] LABS: Bilirubin Total 0.3 mg/dL (0.2-1.0); Protein, Total 7.6 g/dL (6.4-8.2)
--- NOTE | 2023-01-16 11:18 | RAD REPORT ---
EXAM DESCRIPTION: CT - Head Brain Wo Cont - 01/16/2023 11:07 am CLINICAL HISTORY: CONFUSED Headache, drowsiness COMPARISON: No comparisons TECHNIQUE: All CT scans are performed using dose optimization technique as appropriate and may inclu de automated exposure control or mA/KV adjustment according to patient size. FINDINGS: No intracranial hemorrhage, hydrocephalus or extra-axial fluid collection.No areas of brai n edema or evidence of midline shift. The paranasal sinuses and mastoids are clear. The calvarium is intact. IMPRESSION: No acute intracranial abnormality.
--- NOTE | 2023-01-16 12:36 | EDPHYS ---
Physician Documentation [facility] Name: Juno Corcoran Jr Age: 47 yrs Sex: Male : 1975 Arrival Date: 01/16/2023 Time: 10:02 Bed 8 Private MD: ED Physician Dejuan Mas HPI: 01/16 16:54 This 47 yrs old Male presents to ER via Ambulatory with complaints of Confusion. kdr 16:54 Patient reports that he was overheated yesterday and was subsequently seen at [facility] where he received some IV fluids. Today he attempted to return to work but still felt somewhat foggy and had a mild headache. Headache was in the left temporal region. Patient denies any dizziness or weakness or nausea. Patient has not had symptoms like this before. He is otherwise in his usual state of health. Patient is nontoxic-appearing and not requiring acute intervention on presentation. Onset: The symptoms/episode began/occurred gradually, yesterday. Severity of symptoms: At their worst the symptoms were mild moderate just prior to arrival, in the emergency department the symptoms are unchanged. The patient has not experienced similar symptoms in the past. The patient has been recently seen by a physician: [facility]. Historical: - Allergies: 10:17 PENICILLINS; jl7 - Home Meds: 10:17 aspirin 81 mg Oral chew 1 tab once daily [Active]; atorvastatin 20 mg Oral tab 1 tab jl7 once daily [Active]; Claritin 10 mg Oral tab 1 tab twice a day [Active]; metformin 500 mg Oral tab 1 tab 2 times per day [Active]; losartan oral [Active]; tizanidine oral [Active]; - PMHx: 10:17 Diabetes - NIDDM; Hypertension; jl7 - Immunization history:: Adult Immunizations unknown. - Social history:: Smoking status: unknown. ROS: 16:54 Constitutional: Negative for fever, chills, and weight loss, Eyes: Negative for injury, kdr pain, redness, and discharge, ENT: Negative for injury, pain, and discharge, Neck: Negative for injury, pain, and swelling, Cardiovascular: Negative for chest pain, palpitations, and edema, Respiratory: Negative for shortness of breath, cough, wheezing, and pleuritic chest pain, Abdomen/GI: Negative for abdominal pain, nausea, vomiting, diarrhea, and constipation, Back: Negative for injury and pain, : Negative for injury, bleeding, discharge, and swelling, MS/Extremity: Negative for injury and deformity, Skin: Negative for injury, rash, and discoloration, Psych: Negative for depression, anxiety, suicide ideation, homicidal ideation, and hallucinations, Allergy/Immunology: Negative for hives, rash, and allergies, Endocrine: Negative for neck swelling, polydipsia, polyuria, polyphagia, and marked weight changes, Hematologic/Lymphatic: Negative for swollen nodes, abnormal bleeding, and unusual bruising. 16:54 Neuro: Positive for headache, weakness, Foggy/confusion. Exam: 16:54 Constitutional: This is a well developed, well nourished patient who is awake, alert, kdr and in no acute distress. Head/Face: Normocephalic, atraumatic. Eyes: Pupils equal round and reactive to light, extra-ocular motions intact. Lids and lashes normal. Conjunctiva and sclera are non-icteric and not injected. Cornea within normal limits. Periorbital areas with no swelling, redness, or edema. Neck: Trachea midline, no thyromegaly or masses palpated, and no cervical lymphadenopathy. Supple, full range of motion without nuchal rigidity, or vertebral point tenderness. No Meningismus. Chest/axilla: Normal chest wall appearance and motion. Nontender with no deformity. No lesions are appreciated. Cardiovascular: Regular rate and rhythm with a normal S1 and S2. No gallops, murmurs, or rubs. Normal PMI, no JVD. No pulse deficits. Respiratory: Lungs have equal breath sounds bilaterally, clear to auscultation and percussion. No rales, rhonchi or wheezes noted. No increased work of breathing, no retractions or nasal flaring. Abdomen/GI: Soft, non-tender, with normal bowel sounds. No distension or tympany. No guarding or rebound. No evidence of tenderness throughout. Back: No spinal tenderness. No costovertebral tenderness. Full range of motion. Skin: Warm, dry with normal turgor. Normal color with no rashes, no lesions, and no evidence of cellulitis. MS/ Extremity: Pulses equal, no cyanosis. Neurovascular intact. Full, normal range of motion. Neuro: Awake and alert, GCS 15, oriented to person, place, time, and situation. Cranial nerves II-XII grossly intact. Motor strength 5/5 in all extremities. Sensory grossly intact. Cerebellar exam normal. Normal gait. Psych: Awake, alert, with orientation to person, place and time. Behavior, mood, and affect are within normal limits. Vital Signs: 10:12 BP 145 / 86; Pulse 80; Resp 17; Temp 97.7; Pulse Ox 100% ; Weight 117.93 kg; Height 6 jl7 ft. 5 in. ; Pain 3/10; 11:02 BP 141 / 92; Pulse 77; Resp 18; Pulse Ox 98% on R/A; ph 13:17 BP 138 / 84; Pulse 72; Resp 18; Pulse Ox 99% ; ko1 10:12 Body Mass Index 30.83 (117.93 kg, 195.58 cm) [facility] 10:12 Pain Scale: Adult [facility] MDM: 12:35 Patient medically screened. [facility] 16:54 Data reviewed: vital signs, nurses notes, lab test result(s), radiologic studies. [facility] 01/16 10:20 Order name: CBC with Diff; Complete Time: 11:54 [facility] 01/16 10:20 Order name: CMP; Complete Time: 11:54 [facility] 01/16 10:20 Order name: Urinalysis w/ reflexes [facility] 01/16 10:20 Order name: CPK; Complete Time: 11:54 [facility] 01/16 10:22 Order name: Glucose, Ancillary Testing; Complete Time: 10:37 EDMS 01/16 10:24 Order name: Glucose, Ancillary Testing EDDC 01/16 10:37 Order name: Troponin High Sensitivity; Complete Time: 11:54 [facility] 01/16 10:56 Order name: CT Head Brain wo Cont; Complete Time: 11:54 [facility] 01/16 10:20 Order name: IV Saline Lock; Complete Time: 10:48 kdr 01/16 10:20 Order name: Labs collected and sent; Complete Time: 10:48 [facility] 01/16 10:37 Order name: EKG - Nurse/Tech; Complete Time: 10:39 kdr Administered Medications: 10:53 Drug: NS 0.9% IV 1000 ml Route: IV; Rate: 1 bolus; Site: left hand; ko1 12:00 Follow up: Response: No adverse reaction; IV Status: Completed infusion; IV Intake: ko1 1000ml 10:53 Drug: Ondansetron IVP 4 mg Route: IVP; Site: left hand; ko1 13:16 Follow up: Response: No adverse reaction mb9 10:53 Drug: Famotidine IVP 20 mg Route: IVP; Site: left hand; ko1 13:16 Follow up: Response: No adverse reaction mb9 12:40 Drug: NS 0.9% IV 500 ml Route: IV; Rate: bolus; Site: left hand; ko1 13:16 Follow up: IV Status: Completed infusion; IV Intake: 500ml mb9 Disposition Summary: 01/16/23 12:35 Discharge Ordered Location: Home kdr Problem: new kdr Symptoms: have improved kdr Condition: Stable kdr Diagnosis - Dehydration kdr - Weakness kdr - Nausea kdr Followup: kdr - With: Private Physician - When: 2 - 3 days - Reason: If symptoms return, Further diagnostic work-up, Recheck today's complaints, Continuance of care, Re-evaluation by your physician Discharge Instructions: - Discharge Summary Sheet kdr - Dehydration, Adult kdr - Weakness kdr - Nausea and Vomiting, Adult, [id number] kdr Forms: - Medication Reconciliation Form kdr - Thank You Letter kdr - Work release form ko1 Prescriptions: - promethazine 25 mg Oral Tablet - take 1 tablet by ORAL route every 6 hours As needed; 20 tablet; Refills: 0, kdr Product Selection Permitted Signatures: Dispatcher [employer] Dejuan Valles MD MD kdr Sarah Springer RN RN Evita Durbin RN RN jl7 Frida Jay RN RN ko1 Lorri Macias RN mb9
--- NOTE | 2023-01-16 12:36 | ER ---
Nurse's Notes [facility] Name: Juno Corcoran Jr Age: 47 yrs Sex: Male : 1975 Arrival Date: 01/16/2023 Time: 10:02 Bed 8 Private MD: Diagnosis: Dehydration;Weakness;Nausea Presentation: 01/16 10:12 Chief complaint: Patient states: Got overheated yesterday, seen at [place] and got jl7 fluids. Leaving work today and feel's foggy, mild headache to left temporal area, denies dizziness, denies weakness, denies nausea. Coronavirus screen: At this time, the client does not indicate any symptoms associated with coronavirus-19. Ebola Screen: No symptoms or risks identified at this time. Initial Sepsis Screen: Does the patient meet any 2 criteria? No. Patient's initial sepsis screen is negative. Does the patient have a suspected source of infection? No. Patient's initial sepsis screen is negative. Risk Assessment: Do you want to hurt yourself or someone else? Patient reports no desire to harm self or others. Onset of symptoms was January 16, 2023. 10:12 Method Of Arrival: Ambulatory jl7 10:12 Acuity: KEVIN 3 jl7 Triage Assessment: 10:17 General: Appears in no apparent distress. uncomfortable, Behavior is calm, cooperative, jl7 appropriate for age. Pain: Denies pain. Historical: - Allergies: 10:17 PENICILLINS; jl7 - Home Meds: 10:17 aspirin 81 mg Oral chew 1 tab once daily [Active]; atorvastatin 20 mg Oral tab 1 tab jl7 once daily [Active]; Claritin 10 mg Oral tab 1 tab twice a day [Active]; metformin 500 mg Oral tab 1 tab 2 times per day [Active]; losartan oral [Active]; tizanidine oral [Active]; - PMHx: 10:17 Diabetes - NIDDM; Hypertension; jl7 - Immunization history:: Adult Immunizations unknown. - Social history:: Smoking status: unknown. Screenin:02 [facility] ED Fall Risk Assessment (Adult) History of falling in the last 3 months, ph including since admission No falls in past 3 months (0 pts) Confusion or Disorientation No (0 pts) Intoxicated or Sedated No (0 pts) Impaired Gait No (0 pts) Mobility Assist Device Used No (0 pt) Altered Elimination No (0 pt) Score/Fall Risk Level 0 - 2 = Low Risk Oriented to surroundings, Maintained a safe environment, Hourly rounding (assess needs \T\ fall precautionary measures) done. Abuse screen: Denies threats or abuse. Denies injuries from another. Nutritional screening: No deficits noted. Tuberculosis screening: No symptoms or risk factors identified. Assessment: 10:45 Neuro: Reports dizziness, confusion. Cardiovascular: No deficits noted. Respiratory: No ko1 deficits noted. GI: No deficits noted. : No deficits noted. EENT: No deficits noted. Derm: No deficits noted. Musculoskeletal: No deficits noted. 12:51 Reassessment: Discharge pending fluid completion. ko1 Vital Signs: 10:12 BP 145 / 86; Pulse 80; Resp 17; Temp 97.7; Pulse Ox 100% ; Weight 117.93 kg; Height 6 jl7 ft. 5 in. ; Pain 3/10; 11:02 BP 141 / 92; Pulse 77; Resp 18; Pulse Ox 98% on R/A; ph 13:17 BP 138 / 84; Pulse 72; Resp 18; Pulse Ox 99% ; ko1 10:12 Body Mass Index 30.83 (117.93 kg, 195.58 cm) jl7 10:12 Pain Scale: Adult jl7 ED Course: 10:03 Patient arrived in ED. rg4 10:06 Dejuan Mas MD is Attending Physician. kdr 10:17 Triage completed. jl7 10:17 Arm band placed on right wrist. jl7 10:20 Frida Jay, RN is Primary Nurse. ko1 10:26 EKG done, by ED staff, reviewed by Dejuan Mas MD. em1 10:48 Initial lab(s) drawn, by mo, sent to lab. Inserted saline lock: 22 gauge in left hand, em1 using aseptic technique. Blood collected. 10:53 Troponin High Sensitivity Sent. ko1 10:53 CPK Sent. ko1 10:53 CBC with Diff Sent. ko1 10:53 CMP Sent. ko1 11:03 Patient has correct armband on for positive identification. Bed in low position. Call ph light in reach. Side rails up X 1. Pulse ox on. NIBP on. 11:08 CT Head Brain wo Cont In Process Unspecified. EDMS 12:41 Urinalysis w/ reflexes Sent. ko1 13:17 No provider procedures requiring assistance completed. IV discontinued, intact, ko1 bleeding controlled, No redness/swelling at site. Pressure dressing applied. Administered Medications: 10:53 Drug: NS 0.9% IV 1000 ml Route: IV; Rate: 1 bolus; Site: left hand; ko1 12:00 Follow up: Response: No adverse reaction; IV Status: Completed infusion; IV Intake: ko1 1000ml 10:53 Drug: Ondansetron IVP 4 mg Route: IVP; Site: left hand; ko1 13:16 Follow up: Response: No adverse reaction mb9 10:53 Drug: Famotidine IVP 20 mg Route: IVP; Site: left hand; ko1 13:16 Follow up: Response: No adverse reaction mb9 12:40 Drug: NS 0.9% IV 500 ml Route: IV; Rate: bolus; Site: left hand; ko1 13:16 Follow up: IV Status: Completed infusion; IV Intake: 500ml mb9 Medication: 11:03 VIS not applicable for this client. ph Intake: 12:00 IV: 1000ml; Total: 1000ml. ko1 13:16 IV: 500ml; Total: 1500ml. mb9 Outcome: 12:35 Discharge ordered by . kdr 13:17 Discharged to home ambulatory, with family. ko1 13:17 Condition: stable 13:17 Discharge instructions given to patient, family, Instructed on discharge instructions, follow up and referral plans. medication usage, Demonstrated understanding of instructions, follow-up care, medications, Prescriptions given X 1. 13:29 Patient left the ED. ko1 Signatures: Dispatcher [employer] EDMS Dejuan Mas MD MD kdr Martinez, Eric em1 Sarah Springer RN RN ph Taya Thorpe4 Evita Sewell RN RN jl7 Frida Jay RN RN ko1 Lorri Macias RN RN mb9
[2023-01-16] MEDS ORDERED: NA CHLORIDE 0.9% 500 ML ONE (12:42)
[2023-01-16 12:46] LABS: Specific Gravity > 1.030 (1.005-1.030); Urine Bilirubin NEGATIVE (Negative); Urine Blood Negative (Negative); Urine Clarity Clear (Clear); Urine Color Light-Yellow (Yellow); Urine Glucose 4+ (Over) (Negative); Urine Protein NEGATIVE (Negative); Urine Urobilinogen Normal (Normal)
[2023-01-16 14:12] VITALS: TEMP 97.7
[2023-01-16 14:16] VITALS: BP 138/84; O2SAT 99
--- NOTE | 2023-01-18 08:24 | EKG ---
Test Date: 2023-01-16 Test Time: 10:16:44 [employer] Machine: KAYDEN MEASUREMENT RESULTS: Intervals: Rate: 85 AL: 156 QRSD: 94 QT: 362 QTc: 430 [place]: P: 48 AL: 156 QRS: 148 T: 54 INTERPRETIVE STATEMENTS: Normal sinus rhythm Normal ECG Compared to ECG 05/14/2018 13:14:40 No significant changes Electronically Signed On 01-18-23 08:18:37 CDT by Washington Crenshaw
== END 2023-01-16 13:29 | disposition home or self-care (01) ==
LOC: ER 10:02
DX: E86.0 Dehydration (principal); R11.0 Nausea; I10 Essential (primary) hypertension; E11.9 Type 2 diabetes mellitus without complications; Z88.0 Allergy status to penicillin; Z79.82 Long term (current) use of aspirin
CPT/HCPCS: 96361; 93005; 85025; 36415; 82550; 82947; 81003; 84484; 80053; 70450; 96375; 96374; 99284; J2405; J7040; J7030